=== PATIENT | female | born 1945 | race Caucasian/White ===

== ENCOUNTER 2017-10-15 11:20 | Observation (INO) | payer MEDICARE ==
[~2017-10-15] VITALS: Ht 157.5 cm; Wt 63.5 kg
[2017-10-15] MEDS ORDERED: SODIUM CHLORIDE 0.9% 1000ML 1,000 ML IV STA (11:38)
[2017-10-15] MEDS ORDERED: ASPIRIN 81 MG CHEW TAB PO ONE ×3 (11:45→15:45)
[2017-10-15 11:51] LABS: BASOPHILS # (AUTO) 0.1 (0.0-0.1); BASOPHILS % 1.4 % (0.0-1.0); EOSINOPHILS # (AUTO) 0.1 (0.0-0.4); EOSINOPHILS % 1.4 % (0.0-6.0); HEMATOCRIT 34.3 % (34.2-44.1); HEMOGLOBIN 11.2 g/dL (12.0-16.0); LYMPHOCYTES # (AUTO) 0.9 (1.0-3.2); LYMPHOCYTES % 25.8 % (18.0-39.1); MEAN CORPUSCULAR HEMOGLOBIN 28.9 pg (28-32); MEAN CORPUSCULAR HGB CONC 32.7 g/dL (31-35); MEAN CORPUSCULAR VOLUME 88.4 fL (81-99); MONOCYTES # (AUTO) 0.3 (0.2-0.8); MONOCYTES % 9.4 % (4.4-11.3); NEUTROPHILS # (AUTO) 2.2 (2.1-6.9); NEUTROPHILS % 61.7 % (38.7-80.0); PLATELET COUNT 147 x10e3/uL (140-360); RED BLOOD COUNT 3.88 x10e6/uL (3.6-5.1)
[2017-10-15 12:09] LABS: INR 1.06
[2017-10-15 12:10] LABS: PARTIAL THROMBOPLASTIN TIME 25.2 seconds (23.8-35.5)
[2017-10-15 12:15] LABS: ALANINE AMINOTRANSFERASE 38 IU/L (0-55); ALBUMIN 3.7 g/dL (3.5-5.0); ALBUMIN/GLOBULIN RATIO 1.1 (0.8-2.0); ALKALINE PHOSPHATASE 137 IU/L (40-150); BLOOD UREA NITROGEN 11 mg/dL (7-26); BUN/CREATININE RATIO 12 (6-25); CALCIUM 9.3 mg/dL (8.4-10.2); CARBON DIOXIDE 27 mmol/L (22-29); CHLORIDE 107 mmol/L (98-107); CREATINE KINASE 56 IU/L (29-168); CREATININE, SERUM 0.95 mg/dL (0.57-1.11); EST GLOMERULAR FILTRATION RATE 58 ML/MIN (60-); GLUCOSE 97 mg/dL (74-118); SODIUM 142 mmol/L (136-145)
[2017-10-15] MEDS ORDERED: CLONIDINE HCL 0.1 MG TAB PO ONE (12:45)
[2017-10-15] MEDS ORDERED: HYDRALAZINE HCL 20 MG/ML VIAL IV ONE (14:00)
--- NOTE | 2017-10-15 14:40 | Diagnostic Imaging Report ---
History:Syncope. History of tumor removal Comparison studies:None Technique: Axial images were obtained from the skull base to the vertex. Coronal and sagittal images reconstructed from the axial data. Intravenous contrast: None Findings: Scalp/skull: Left occipital craniectomy changes. Left mastoidectomy changes. Extra-axial spaces: No masses. No fluid collections. Brain sulci: Age-appropriate. Ventricles: Age-appropriate. No hydrocephalus. Parenchyma: Few hypodensities in the supratentorial white matter are small vessel ischemic changes. No masses, hemorrhage, acute or chronic cortical vascular insults. Sellar/suprasellar region: No abnormalities. Craniocervical junction: Patent foramen magnum. No Chiari one malformation. Incidental findings: Atherosclerotic calcifications in the carotid siphons . Impression: No acute abnormalities. Chronic findings: 1. Mild supratentorial white matter small vessel ischemic changes. 2. Left occipital craniectomy and mastoidectomy changes. Signed by: DR Ivan Goodwin M.D. on 10/15/2017 2:37 PM
[2017-10-15] MEDS ORDERED: SODIUM CHLORIDE 0.9% 1000ML 1,000 ML IV SCH (15:36)
[2017-10-15 16:29] VITALS: BP 191/81
[2017-10-15] MEDS ORDERED: CLONIDINE HCL 0.1 MG TAB PO SCH (17:00)
[2017-10-15 17:02] VITALS: BP 191/81
--- NOTE | 2017-10-15 18:07 | Diagnostic Imaging Report ---
PROCEDURE: A single AP view of the chest. COMPARISON: 06/17/11 INDICATIONS: SYNCOPE FINDINGS: Lines/tubes: None. Lungs: The lungs are well inflated and clear. There is no evidence of pneumonia or pulmonary edema. Pleura: There is no pleural effusion or pneumothorax. Heart and mediastinum: The cardiac silhouette is borderline in size. Bones: No acute bony abnormality. IMPRESSION: 1. No acute cardiopulmonary disease. Dictated by: Ganesh Bernardo M.D. on 10/15/2017 at 18:10 Electronically approved by: Ganesh Bernardo M.D. on 10/15/2017 at 18:10
[2017-10-15] MEDS ORDERED: HYDRALAZINE HCL 20 MG/ML VIAL IV PRN (18:15)
[2017-10-15] MEDS ORDERED: NIFEDIPINE CR 30 MG TAB PO ONE (18:30)
[2017-10-15 18:40] VITALS: BP 115/55
[2017-10-15 19:38] VITALS: BP 125/56
[2017-10-15 20:00] VITALS: BP 125/56
[2017-10-16] VITALS: BP 141/71
[2017-10-16 04:00] VITALS: BP 137/65
[2017-10-16 06:10] LABS: EOSINOPHILS # (AUTO) 0.1 (0.0-0.4); HEMATOCRIT 32.6 % (34.2-44.1); HEMOGLOBIN 10.5 g/dL (12.0-16.0); LYMPHOCYTES % 24.2 % (18.0-39.1); MEAN CORPUSCULAR HEMOGLOBIN 29.1 pg (28-32); MEAN CORPUSCULAR HGB CONC 32.2 g/dL (31-35); MEAN CORPUSCULAR VOLUME 90.3 fL (81-99); MONOCYTES # (AUTO) 0.4 (0.2-0.8); MONOCYTES % 10.9 % (4.4-11.3); NEUTROPHILS # (AUTO) 2.5 (2.1-6.9); NEUTROPHILS % 61.2 % (38.7-80.0); PLATELET COUNT 136 x10e3/uL (140-360); RED BLOOD COUNT 3.61 x10e6/uL (3.6-5.1); RED CELL DISTRIBUTION WIDTH 13.8 % (11.7-14.4)
[2017-10-16 07:11] LABS: ANION GAP 11.9 mmol/L (8-16); BLOOD UREA NITROGEN 14 mg/dL (7-26); BUN/CREATININE RATIO 18 (6-25); CALCIUM 9.1 mg/dL (8.4-10.2); CARBON DIOXIDE 26 mmol/L (22-29); CHLORIDE 108 mmol/L (98-107); CREATINE KINASE 43 IU/L (29-168); CREATININE, SERUM 0.79 mg/dL (0.57-1.11); EST GLOMERULAR FILTRATION RATE > 60 ML/MIN (60-); GLUCOSE 95 mg/dL (74-118); MAGNESIUM 1.9 MG/DL (1.3-2.1); POTASSIUM 4.9 mmol/L (3.5-5.1); SODIUM 141 mmol/L (136-145)
[2017-10-16 07:12] LABS: THYROID STIMULATING HORMONE 1.452 uIU/mL (0.350-4.940)
[2017-10-16 07:22] VITALS: BP 131/71
[2017-10-16 11:23] VITALS: BP 137/66
[2017-10-16 14:51] VITALS: BP 129/67
--- NOTE | 2017-10-16 15:09 | Diagnostic Imaging Report ---
Exam: Brain MRI without IV contrast History: Passed out Comparison studies: Head CT 10/15/2017 Technique: Sagittal and axial T2 FS, axial coronal T2 flair, axial T1 FLAIR, T2*GRE and DWI. Intravenous contrast: None Findings: Scalp and bone marrow: Changes of left occipital craniectomy and mastoidectomy. Brain sulci: Appropriate for age. Ventricles: Normal in size. No hydrocephalus. Extra axial spaces: No mass, no fluid collection. Parenchyma: No abnormal signal intensities. No masses, hemorrhage, acute or chronic vascular insults. Suprasellar region: No abnormalities. Craniocervical junction: Patent foramen magnum. No Chiari malformation. Vessels: Normal flow-voids in the arteries and sinuses. IMPRESSION: No acute intracranial abnormalities. Chronic findings: 1. Mild supratentorial chronic microvascular ischemic changes. 2. Surgical changes of left occipital craniectomy and mastoidectomy. Signed by: Dr. Hesham Garcia M.D. on 10/16/2017 3:06 PM
--- NOTE | 2017-10-16 16:22 | Discharge Summary ---
PRIMARY CARE DOCTOR: Dr. Yaya Pham FINAL DIAGNOSIS: Syncope with prodrome. SECONDARY DIAGNOSES 1. Uncontrolled hypertension. 2. Hypothyroidism with normal thyroid stimulating hormone. 3. Lupus, stable, not on any medications. PROCEDURES/STUDIES PERFORMED 1. Portable chest computerized tomography. 2. MRI of the brain. Did not show any acute disease. CONSULTANTS: None. HISTORY: Per [facility] and P. HOSPITAL COURSE: The patient currently is back to her baseline. Her etiology is unclear. Fortunately, it is syncope with prodrome. Telemetry monitoring was unremarkable. The patient did not have any murmur to suggest aortic stenosis. Her carotid pulses are 2+ bilateral with no bruits on either side. In addition, carotid Doppler is not indicated given the fact that with anterior communicating circulation it does take bilateral disease to cause syncope. Currently, her blood pressure is normal without any blood pressure medicines. Her last dose was almost 24 hours ago. Her TSH is normal. The patient was told not to drive for 6 months. If her syncope recurred, most likely she should see a sander and polisher. This particular episode given prodrome, likely this is due to a vasovagal event. The patient was seen and examined today. CONDITION ON DISCHARGE: Stable. DISCHARGE MEDICATIONS: Please see medication reconciliation form. MICHELL TRACEY M.D. Job#: [id number] [place]
== END 2017-10-16 17:45 | disposition home or self-care (01) ==
LOC: ER 11:20 → ERHOLD 15:43 → IMCU 16:02
PROVIDERS: ADMIT Internal Medicine; ATTEND Internal Medicine
DX: R55 Syncope and collapse (principal); I16.9 Hypertensive crisis, unspecified; E03.9 Hypothyroidism, unspecified; M32.9 Systemic lupus erythematosus, unspecified; Z88.6 Allergy status to analgesic agent; Z88.2 Allergy status to sulfonamides; Z88.8 Allergy status to other drugs, medicaments and biological substances; Z91.018 Allergy to other foods
CPT/HCPCS: 36415 ×2; 70450; 70551; 71045; 80048; 80053; 82550 ×2; 82553 ×2; 83735; 84443; 84484 ×2; 85025 ×2; 85610; 85730; 93005; 99284; G0378 ×2; J0360; J7030

== ENCOUNTER 2018-10-10 17:28 | Emergency (ER) | payer MEDICARE ==
[~2018-10-10] VITALS: Ht 157.5 cm; Wt 63.5 kg
--- OUTSIDE RECORDS SUMMARY | 2018-10-10 17:32 | XMS REPORT | Summary of Care ---
Author Author [facility] [place] Organization [facility] [place] Address Unknown Phone Unavailable Encounter HQ Stefanie(FIN) [id number] Date(s): 05/16/17 - 05/16/17 [facility] [place] [address] [place] [phone] Discharge Disposition: Home or Self Care Attending Physician: Miriam Grace MD Vital Signs No data available for this section Problem List Condition Effective Dates Status Health Status Informant Anxiety(Confirmed) Resolved Depression(Confirmed Resolved ) Hypothyroid(Confirme Resolved d) Allergies, Adverse Reactions, Alerts Substance Reaction Severity Status sulfa drugs Active Medications No data available for this section Results No data available for this section Immunizations No data available for this section Procedures Procedure Date Related Diagnosis Body Site Status section Completed 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 Alcohol Past, Previous treatment: None. Alcohol use interferes with work or home: No. Drinks more than intended: No. Others hurt by drinking: No. Ready to change: No. Household alcohol concerns: No. Smoking Status Never smoker; Exposure to Tobacco Smoke None; Cigarette Smoking Last 365 Days No; Reg Smoking Cessation Counseling No entered on: 10/07/13 Assessment and Plan No data available for this section
--- OUTSIDE RECORDS SUMMARY | 2018-10-10 17:32 | XMS REPORT | Continuity of Care Document ---
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 [facility] Moderate major depression 08/24/2018 Diagnosis 08/25/2018 [facility] Primary thrombocytopenia 08/24/2018 Diagnosis 08/25/2018 [facility] Allergic Rhinitis 06/27/2017 Problem 08/25/2018 [facility] Unspecified lump in the right breast, unspecified quadrant 06/06/2017 09/08/2017 [facility] Encounter for screening mammogram for malignant neoplasm of breast 05/22/2017 08/22/2017 [facility] N63.10 - UNSPECIFIED LUMP IN THE RIGHT Active 05/22/2017 [facility] Z12.31 - ENCNTR SCREEN MAMMOGRAM FOR MA Active 05/01/2017 [facility] Acoustic Neuroma 04/30/2017 Problem 08/25/2018 [facility] Primary Thrombocytopenia 04/30/2017 Problem 08/25/2018 [facility] Osteopenia 05/25/2015 Problem 08/25/2018 [facility] 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 08/25/2018 [facility] SYNCOPE Active 10/06/2013 [facility] Herpes Simplex 12/14/2012 Problem 08/25/2018 [facility] Pure Hypercholesterolemia 12/14/2012 Problem 08/25/2018 [facility] Anemia of Chronic Disease 12/14/2012 Problem 08/25/2018 [facility] Depressive Disorder 12/14/2012 Problem 08/25/2018 [facility] Systemic Lupus Erythematosus 12/14/2012 Problem 08/25/2018 [facility] SjGren's Syndrome 12/14/2012 Problem 08/25/2018 [facility] Generalized Anxiety Disorder 07/31/2012 Problem 08/25/2018 [facility] Coronary Atherosclerosis 07/09/2012 Problem 08/25/2018 [facility] Osteoarthritis 07/09/2012 Problem 08/25/2018 [facility] Depression Resolved Problem 07/15/2018 [facility] Hypothyroid Resolved Problem 07/15/2018 [facility] Inconclusive mammogram 09/08/2017 GAVIN Guzman Hypertensive urgency Active Problem 10/16/2017 [facility] Syncope Active Problem 10/16/2017 [facility] Hypothyroidism Problem 08/25/2018 [facility] Anxiety Problem 08/25[facility] Depression - Motion Problem 08/25/2018 [facility] SYNCOPE AND COLLAPSE Active [facility] Medications Medication Details Route Status Patient Instructions Ordering Provider Order Date Source Naproxen 375 mg, 1 tab, Route: PO, Drug form: TAB, Q8H, Dosing Weight 63.636, kg, PRN as needed for pain, Start date: 10/07/13 2:36:00, Duration: 30 day, Stop date: 11/06/13 2:35:00Notes: (Same as: Naprosyn) Take with food. Inactive 10/07/2013 [facility] Saline Flush 0.9% 5 ml, Route: IVP, Drug Form: INJ, Dosing Weight 63.636, kg, PRN, PRN Line Flush, Start date: 10/07/13 2:31:00, Duration: 30 day, Stop date: 11/06/13 2:30:00Notes: (Same as: BD Posiflush) Inactive 10/07/2013 [facility] Sodium Chloride 0.154 MEQ/ML Injectable Solution 1,000 mL, Rate: 125 ml/hr, Infuse over: 8 hr, Route: IV, Dosing Weight 63.636 kg, Total Volume: 1,000, Start date: 10/07/13 2:31:00, Duration: 30 day, Stop date: 11/06/13 2:30:00 Inactive 10/07/2013 [facility] Aspirin / Calcium Carbonate 324 mg, 4 tab, Route: CHEW, Drug form: CHEWTAB, ONCE, Dosing Weight 63.636, kg, Priority: STAT, Start date: 10/07/13 1:53:00, Stop date: 10/07/13 1:53:00Notes: Take with food. Inactive 10/07/2013 [facility] Saline Flush 0.9% 5 mL, Route: IVP, Drug Form: INJ, Dosing Weight 63.636, kg, Q8H, PRN Line Flush, Start date: 10/06/13 22:30:00, Duration: 30 day, Stop date: 11/05/13 22:29:00, Administer at least once every 8 hoursSpecial Instructions: Administer at least once every 8 hoursNotes: (Same as: BD Posiflush) No Longer Active 10/07/2013 [facility] Clorazepate Dipotassium 3.75 MG Oral Tablet clorazepate dipotassium 3.75 mg tablet TAKE 1 TABLET BY MOUTH EVERY DAY Active [facility] irbesartan 300 MG Oral Tablet irbesartan 300 mg tablet Take 1 tablet every day by oral route. Active [facility] Levothyroxine Sodium 0.1 MG Oral Tablet levothyroxine 100 mcg tablet Take 1 tablet every day by oral route. Active [facility] Paroxetine Hydrochloride 30 MG Oral Tablet paroxetine 30 mg tablet 1 tab po daily Active [facility] Dexamethasone 1 MG/ML / Tobramycin 3 MG/ML Ophthalmic Suspension tobramycin 0.3 %-dexamethasone 0.1 % eye drops,suspension Instill 1 drop every 6 hours by ophthalmic route for 7 days. Active [facility] valacyclovir 1000 MG Oral Tablet valacyclovir 1 gram tablet Active [facility] Allergies, Adverse Reactions, Alerts Substance Category Reaction Severity Reaction type Status Date Reported Comments Source Carisoprodol Allergy to substance 02/25/2012 [facility] Egg Other Mild to Moderate Allergy to substance 02/25/2012 [facility] Ibuprofen Allergy to substance 05/25/2015 [facility] Sulfa (Sulfonamide Antibiotics) RED RASH Mild Allergy to Substance Active 10/15/2017 [facility] Eggs Unknown Allergy to Substance Active 10/15/2017 [facility] Banana Nausea Mild Allergy to substance 10/20/2017 [facility] Rj Inhibitors Cough Moderate Allergy to substance 02/20/2018 [facility] sulfa drugs Assertion Drug allergy Active [facility] Immunizations Immunization Date Given Site Status Last Updated Comments Source zoster subunit 03/21/2018 completed [facility] Tdap 11/12/2017 completed [facility] zoster subunit 10/20/2017 completed [facility] pneumococcal conjugate PCV 13 05/25/2015 completed [facility] pneumococcal polysaccharide PPV23 11/03/2011 completed [facility] zoster 05/05/2007 completed [facility] Tdap 05/05/2006 completed [facility] zoster subunit active [facility] Results Order Name Results Value Reference Range Date Interpretation Comments Source Breast Mammo Scrn KAMRAN incl CAD MA Breast Mammo Scrn KAMRAN incl CAD MA BILATERAL DIGITAL SCREENING MAMMOGRAM WITH CAD: 07/13/2018 CLINICAL: Routine/Screening. Current study was evaluated with a Computer Aided Detection (CAD) system. COMPARISON:Comparison is made to exams dated: 06/02/2017 mammogram, 05/16/2017 mammogram, 07/07/2015 mammogram, and 05/29/2012 mammogram - [facility]. TECHNIQUE: Mammographic views were obtained using digital acquisition. Current study was also evaluated with a Computer Aided Detection (CAD) system. FINDINGS: The tissue of both breasts is heterogeneously dense, which could obscure detection of small masses. No significant masses, calcifications, or other findings are seen in either breast. There has been no significant interval change. IMPRESSION: NEGATIVE RECOMMENDATION:There is no mammographic evidence of malignancy. A 1 year screening mammogram is recommended.(07/14/2019) This exam was interpreted at [id number] for TIM Blake. Professional services are provided by the [facility]. Liya floyd/ruthie:07/15/2018 09:04:59 Absorption And Adsorption Engineer(s): RT Rita(R)(M), [facility] letter sent: BI-RADS 1/2 Dense Mammogram BI-RADS: 1 Negative 07/13/2018 - - Read by: Liya Che MD Dictated Date/time: 07/15/18 09:04 Electronically Signed by: Liya Che MD 07/15/18 09:04 [facility] Automated blood basophil count (count/volume) Automated blood basophil count (count/volume) 0.0 0.0 - 0.1 10/16/2017 [facility] Automated blood basophil count as percentage of total leukocytes Automated blood basophil count as percentage of total leukocytes 1.0 0.0 - 1.0 10/16/2017 [facility] Automated blood eosinophil count Automated blood eosinophil count 0.1 0.0 - 0.4 10/16/2017 [facility] Automated blood eosinophil count as percentage of total leukocytes Automated blood eosinophil count as percentage of total leukocytes 2.0 0.0 - 6.0 10/16/2017 [facility] Automated blood hematocrit (volume fraction) Automated blood hematocrit (volume fraction) 32.6 34.2 - 44.1 10/16/2017 [facility] Automated blood lymphocyte count as percentage ot total leukocytes Automated blood lymphocyte count as percentage ot total leukocytes 24.2 18.0 - 39.1 10/16/2017 [facility] Automated blood monocyte count as percentage of total leukocytes Automated blood monocyte count as percentage of total leukocytes 10.9 4.4 - 11.3 10/16/2017 [facility] Automated blood neutrophil count Automated blood neutrophil count 2.5 2.1 - 6.9 10/16/2017 [facility] Automated blood platelet count (count/volume) Automated blood platelet count (count/volume) 136 140 - 360 10/16/2017 [facility] Automated blood segmented neutrophil count as percentage of total leukocytes Automated blood segmented neutrophil count as percentage of total leukocytes 61.2 38.7 - 80.0 10/16/2017 [facility] Automated erythrocyte mean corpuscular hemoglobin (mass per erythrocyte) Automated erythrocyte mean corpuscular hemoglobin (mass per erythrocyte) 29.1 28 - 32 10/16/2017 [facility] Automated erythrocyte mean corpuscular hemoglobin concentration measurement (mass/volume) Automated erythrocyte mean corpuscular hemoglobin concentration measurement (mass/volume) 32.2 31 - 35 10/16/2017 [facility] Automated erythrocyte mean corpuscular volume Automated erythrocyte mean corpuscular volume 90.3 81 - 99 10/16/2017 [facility] Blood erythrocytes automated count (number/volume) Blood erythrocytes automated count (number/volume) 3.61 3.6 - 5.1 10/16/2017 [facility] Blood hemoglobin measurement (moles/volume) Blood hemoglobin measurement (moles/volume) 10.5 12.0 - 16.0 10/16/2017 [facility] Blood leukocytes automated count (number/volume) Blood leukocytes automated count (number/volume) 4.05 4.8 - 10.8 10/16/2017 [facility] Blood lymphocytes count (number/volume) Blood lymphocytes count (number/volume) 1.0 1.0 - 3.2 10/16/2017 [facility] Blood monocytes automated count (number/volume) Blood monocytes automated count (number/volume) 0.4 0.2 - 0.8 10/16/2017 [facility] Estimated glomerular filtration rate (GFR) determination Estimated glomerular filtration rate (GFR) determination null 60 10/16/2017 [facility] Glucose measurement Glucose measurement 95 74 - 118 10/16/2017 [facility] Serum or plasma anion gap Serum or plasma anion gap 11.9 8 - 16 10/16/2017 [facility] Serum or plasma calcium measurement (mass/volume) Serum or plasma calcium measurement (mass/volume) 9.1 8.4 - 10.2 10/16/2017 [facility] Serum or plasma carbon dioxide, total measurement (moles/volume) Serum or plasma carbon dioxide, total measurement (moles/volume) 26 22 - 29 10/16/2017 [facility] Serum or plasma chloride measurement (moles/volume) Serum or plasma chloride measurement (moles/volume) 108 98 - 107 10/16/2017 [facility] Serum or plasma creatine kinase MB measurement (mass/volume) Serum or plasma creatine kinase MB measurement (mass/volume) 1.40 0 - 5.0 10/16/2017 [facility] Serum or plasma creatine kinase measurement (enzymatic activity/volume) Serum or plasma creatine kinase measurement (enzymatic activity/volume) 43 29 - 168 10/16/2017 [facility] Serum or plasma creatinine measurement (mass/volume) Serum or plasma creatinine measurement (mass/volume) 0.79 0.57 - 1.11 10/16/2017 [facility] Serum or plasma magnesium measurement (mass/volume) Serum or plasma magnesium measurement (mass/volume) 1.9 1.3 - 2.1 10/16/2017 [facility] Serum or plasma potassium measurement (moles/volume) Serum or plasma potassium measurement (moles/volume) 4.9 3.5 - 5.1 10/16/2017 [facility] Serum or plasma sodium measurement (moles/volume) Serum or plasma sodium measurement (moles/volume) 141 136 - 145 10/16/2017 [facility] Serum or plasma thyrotropin measurement by detection limit <=0.005 miu/l (units/volume) Serum or plasma thyrotropin measurement by detection limit <=0.005 miu/l (units/volume) 1.452 0.350 - 4.940 10/16/2017 [facility] Serum or plasma urea nitrogen measurement (mass/volume) Serum or plasma urea nitrogen measurement (mass/volume) 14 7 - 26 10/16/2017 [facility] Serum or plasma urea nitrogen/creatinine mass ratio Serum or plasma urea nitrogen/creatinine mass ratio 18 6 - 25 10/16/2017 [facility] Troponin I measurement by highly sensitive enzyme immunoassay Troponin I measurement by highly sensitive enzyme immunoassay null 0 - 0.300 10/16/2017 [facility] Red Cell Distribution Width 13.8 11.7 - 14.4 10/16/2017 [facility] IM GRANULOCYTES % 0.7 0.0 - 1.0 10/16/2017 [facility] Absolute Immature Granulocyte (auto 0.03 0 - 0.1 10/16/2017 [facility] Activated partial thromboplastin time (aPTT) in platelet poor plasma bycoagulation assay Activated partial thromboplastin time (aPTT) in platelet poor plasma bycoagulation assay 25.2 23.8 - 35.5 10/15/2017 [facility] INR in Platelet poor plasma by Coagulation assay INR in Platelet poor plasma by Coagulation assay 1.06 10/15/2017 [facility] Plasma globulin measurement (mass/volume) Plasma globulin measurement (mass/volume) 3.5 2.3 - 3.5 10/15/2017 [facility] Prothrombin time (PT) in platelet poor plasma by coagulation assay Prothrombin time (PT) in platelet poor plasma by coagulation assay 13.0 11.9 - 14.5 10/15/2017 [facility] Serum or plasma alanine aminotransferase measurement (enzymatic activity/volume) Serum or plasma alanine aminotransferase measurement (enzymatic activity/volume) 38 0 - 55 10/15/2017 [facility] Serum or plasma albumin measurement (mass/volume) Serum or plasma albumin measurement (mass/volume) 3.7 3.5 - 5.0 10/15/2017 [facility] Serum or plasma albumin/globulin mass ratio Serum or plasma albumin/globulin mass ratio 1.1 0.8 - 2.0 10/15/2017 [facility] Serum or plasma alkaline phosphatase measurement (enzymatic activity/volume) Serum or plasma alkaline phosphatase measurement (enzymatic activity/volume) 137 40 - 150 10/15/2017 [facility] Serum or plasma protein measurement (mass/volume) Serum or plasma protein measurement (mass/volume) 7.2 6.5 - 8.1 10/15/2017 [facility] Serum or plasma total bilirubin measurement (mass/volume) Serum or plasma total bilirubin measurement (mass/volume) 0.3 0.2 - 1.2 10/15/2017 [facility] Aspartate Amino Transf (AST/SGOT) 28 5 - 34 10/15/2017 [facility] Breast Mammo Diag UNI incl CAD MA Breast Mammo Diag UNI incl CAD MA UNILATERAL RIGHT DIGITAL DIAGNOSTIC MAMMOGRAM WITH CAD: 06/02/2017 CLINICAL: N63.10 Unspecified Lump In The Right Breast, Unspecified Quadrant/N63.10 Unspecified Lump In The Right Breast, Unspecified Quadrant. Current study was evaluated with a Computer Aided Detection (CAD) system. COMPARISON:Comparison is made to exams dated: 05/16/2017 mammogram, 07/07/2015 mammogram, 05/29/2012 mammogram - [facility], 03/25/2011 mammogram, 02/28/2010 mammogram, and 04/22/2008 mammogram - [facility]. TECHNIQUE: Mammographic views were obtained using digital acquisition. Current study was also evaluated with a Computer Aided Detection (CAD) system. FINDINGS: The tissue of right breast is heterogeneously dense, which could obscure detection of small masses. Additional imaging was obtained. Focal area in question in the right breast in prior mammography is not reproduced and presumably represents superimposed breast tissue. No significant masses, calcifications, or other findings are seen in the breast. IMPRESSION: BENIGN RECOMMENDATION:There is no mammographic evidence of malignancy. A 1 year screening mammogram is recommended.(06/03/2018) This exam was interpreted at [id number] for TIM Guzman. Professional services are provided by the [facility]. Oren Moe M.D. cm/penrad:06/02/2017 15:15:50 Absorption And Adsorption Engineer(s): RT Brittney(R)(M), [facility] letter sent: BI-RADS 1/2 Mammogram BI-RADS: 2 Benign 06/02/2017 - - Read by: Elvis Marley MD Dictated Date/time: 06/02/17 15:15 Electronically Signed by: Elvis Marley MD 06/02/17 15:15 FINAL REPORT TIM Guzman Breast Mammo Scrn KAMRAN incl CAD MA Breast Mammo Scrn KAMRAN incl CAD MA BILATERAL DIGITAL SCREENING MAMMOGRAM WITH CAD: 05/16/2017 CLINICAL: Routine/Screening. Current study was evaluated with a Computer Aided Detection (CAD) system. COMPARISON:Comparison is made to exams dated: 07/07/2015 mammogram, 05/29/2012 mammogram - [facility], 03/25/2011 mammogram, 02/28/2010 mammogram, 04/22/2008 mammogram, and 01/14/2007 mammogram - [facility]. TECHNIQUE: Mammographic views were obtained using digital acquisition. Current study was also evaluated with a Computer Aided Detection (CAD) system. FINDINGS: The tissue of both breasts is heterogeneously dense, which could obscure detection of small masses. There is an asymmetry in the right breast anterior depth lateral region seen on the craniocaudal view only 8.5 cm from the nipple. No other significant masses, calcifications, or other findings are seen in either breast. IMPRESSION: INCOMPLETE: NEEDS ADDITIONAL IMAGING EVALUATION RECOMMENDATION:The asymmetry in the right breast is indeterminate. Diagnostic mammography with possible ultrasound are recommended. This exam was interpreted at [id number] for TIM Thomas. Professional services are provided by the [facility]. Oren Moe M.D. cm/penrad:05/21/2017 15:23:32 Absorption And Adsorption Engineer(s): Orquidea Rasmussen, RT(R)(M), [facility] letter sent: BI-RADS 0 Mammogram BI-RADS: 0 Indeterminate 05/16/2017 - - Read by: Elvis Marley MD Dictated Date/time: 05/21/17 15:23 Electronically Signed by: Elvis Marley MD 05/21/17 15:23 FINAL REPORT TIM ALONSO Thomas Digital Mammo Screening Kamran MA Digital Mammo Screening Kamran MA - DIGITAL MAMMO SCREENING KAMRAN MA BILATERAL DIGITAL SCREENING MAMMOGRAM WITH CAD: 07/07/2015 CLINICAL: Z12.31 Encounter For Screening Mammogram For Malignant Neoplasm Of Breast. Current study was evaluated with a Computer Aided Detection (CAD) system. Comparison is made to exams dated: 05/29/2012 mammogram - [facility], 03/25/2011 mammogram, 02/28/2010 mammogram, 04/22/2008 mammogram and 01/14/2007 mammogram - [facility]. The tissue of both breasts is heterogeneously dense, which could obscure detection of small masses. There are benign calcifications in both breasts. There also are post operative findings in the right breast. No significant masses, calcifications, or other findings are seen in either breast. There has been no significant interval change. IMPRESSION: BENIGN There is no mammographic evidence of malignancy. A 1 year screening mammogram is recommended. Oern Moe M.D. cm/penrad:07/10/2015 09:44:49 Absorption And Adsorption Engineer: Orquidea Rasmussen RT(R)(M), [facility] This exam was dictated and interpreted by [id number] for TIM Guzman. letter sent: Normal exam Mammogram BI-RADS: 2 Benign 07/07/2015 - - Read by: Elvis Marley MD Dictated Date/time: 07/10/15 09:44 Electronically Signed by: Elvis Marley MD 07/10/15 09:44 FINAL REPORT GAVIN Guzman CARDIAC ENZYMES Total CK 87 unit/L 12 - 191 10/07/2013 [facility] CARDIAC ENZYMES Troponin-I null 0.00 - 0.40 10/07/2013 [facility] CARDIAC ENZYMES CK MB Index 1.8 0.0 - 2.5 10/07/2013 [facility] CARDIAC ENZYMES CK MB 1.6 ng/mL 0.5 - 3.6 10/07/2013 [facility] CARDIAC ENZYMES Troponin-I null 0.00 - 0.40 10/07/2013 [facility] CARDIAC ENZYMES Total CK 67 unit/L 12 - 191 10/07/2013 [facility] CHEM PANEL Magnesium Lvl 1.8 mg/dL 1.8 - 2.4 10/07/2013 [facility] ELECTROLYTES AGAP 9.3 meq/L 10.0 - 20.0 10/07/2013 [facility] ELECTROLYTES eGFR 77 mL/min/1.73m2 10/07/2013 1Result Comment: The eGFR is calculated using the CKD-EPI formula. In most young, healthy individuals the eGFR will be >90 mL/min/1.73m2. The eGFR declines with age. An eGFR of 60-89 may be normal in some populations, particularly the elderly, for whom the CKD-EPI formula has not been extensively validated. Use of the eGFR is not recommended in the following populations: Individuals with unstable creatinine concentrations, including patients and those with serious co-morbid conditions. Patients with extremes in muscle mass or diet. The data above are obtained from the National Kidney Disease Education Program (NKDEP) which additionally recommends that when the eGFR is used in patients with extremes of body mass index for purposes of drug dosing, the eGFR should be multiplied by the estimated BMI. [facility] ELECTROLYTES Calcium Lvl 9.5 mg/dL 8.5 - 10.5 10/07/2013 [facility] ELECTROLYTES CO2 28 meq/L 24 - 32 10/07/2013 [facility] ELECTROLYTES Chloride Lvl 106 meq/L 95 - 109 10/07/2013 [facility] ELECTROLYTES Sodium Lvl 139 meq/L 135 - 145 10/07/2013 [facility] ELECTROLYTES Potassium Lvl 4.3 meq/L 3.5 - 5.1 10/07/2013 [facility] ELECTROLYTES Creatinine Lvl 0.8 mg/dL 0.5 - 1.4 10/07/2013 [facility] ELECTROLYTES Glucose Lvl 88 mg/dL 70 - 99 10/07/2013 3Interpretive Data: Adult reference range values reflect the clinical guidelines of the [place] [employer]. [facility] ELECTROLYTES BUN 10 mg/dL 7 - 22 10/07/2013 [facility] HEMATOLOGY Basophils 0.7 % 0.0 - 1.0 10/07/2013 [facility] HEMATOLOGY Lymphocytes # 1.0 K/CMM 1.0 - 5.5 10/07/2013 [facility] HEMATOLOGY Segs-Bands # 3.6 K/CMM 1.5 - 8.1 10/07/2013 [facility] HEMATOLOGY Eosinophils # 0.1 K/CMM 0.0 - 0.5 10/07/2013 [facility] HEMATOLOGY Monocytes # 0.5 K/CMM 0.0 - 0.8 10/07/2013 [facility] HEMATOLOGY Eosinophils 1.2 % 0.0 - 4.0 10/07/2013 [facility] HEMATOLOGY Lymphocytes 18.9 % 20.0 - 40.0 10/07/2013 [facility] HEMATOLOGY Segs 69.9 % 45.0 - 75.0 10/07/2013 [facility] HEMATOLOGY Monocytes 9.3 % 2.0 - 12.0 10/07/2013 [facility] HEMATOLOGY Hct 35.2 % 36.0 - 48.0 10/07/2013 [facility] HEMATOLOGY Hgb 11.9 g/dL 12.0 - 16.0 10/07/2013 [facility] HEMATOLOGY RBC X 10x6 3.84 M/CMM 4.20 - 5.40 10/07/2013 [facility] HEMATOLOGY WBC X 10x3 5.1 K/CMM 3.7 - 10.4 10/07/2013 [facility] HEMATOLOGY MCV 91.5 fL 81.0 - 99.0 10/07/2013 [facility] HEMATOLOGY RDW 13.5 % 11.5 - 14.5 10/07/2013 [facility] HEMATOLOGY MCHC 33.7 g/dL 32.0 - 36.0 10/07/2013 [facility] MCH 30.9 pg 27.0 - 31.0 10/07/2013 [facility] HEMATOLOGY MPV 8.7 fL 7.4 - 10.4 10/07/2013 [facility] HEMATOLOGY Platelet 123 K/CMM 133 - 450 10/07/2013 [facility] CARDIAC ENZYMES Troponin-I null 0.00 - 0.40 10/07/2013 [facility] CARDIAC ENZYMES CK MB 2.0 ng/mL 0.5 - 3.6 10/07/2013 [facility] CARDIAC ENZYMES Total CK 90 unit/L 12 - 191 10/07/2013 [facility] CARDIAC ENZYMES CK MB Index 2.2 0.0 - 2.5 10/07/2013 [facility] CHEM PANEL eGFR 77 mL/min/1.73m2 10/07/2013 2Result Comment: The eGFR is calculated using the CKD-EPI formula. In most young, healthy individuals the eGFR will be >90 mL/min/1.73m2. The eGFR declines with age. An eGFR of 60-89 may be normal in some populations, particularly the elderly, for whom the CKD-EPI formula has not been extensively validated. Use of the eGFR is not recommended in the following populations: Individuals with unstable creatinine concentrations, including patients and those with serious co-morbid conditions. Patients with extremes in muscle mass or diet. The data above are obtained from the National Kidney Disease Education Program (NKDEP) which additionally recommends that when the eGFR is used in patients with extremes of body mass index for purposes of drug dosing, the eGFR should be multiplied by the estimated BMI. [facility] CHEM PANEL Alk Phos 85 unit/L 39 - 136 10/07/2013 [facility] CHEM PANEL ALT 31 unit/L 0 - 65 10/07/2013 [facility] CHEM PANEL AST 25 unit/L 0 - 37 10/07/2013 [facility] CHEM PANEL Total Protein 7.8 g/dL 6.4 - 8.4 10/07/2013 [facility] CHEM PANEL Globulin 3.4 g/dL 2.0 - 4.0 10/07/2013 [facility] CHEM PANEL Albumin Lvl 4.4 g/dL 3.5 - 5.0 10/07/2013 [facility] CHEM PANEL AGAP 9.6 meq/L 10.0 - 20.0 10/07/2013 [facility] CHEM PANEL Bili Total 0.3 mg/dL 0.2 - 1.3 10/07/2013 [facility] CHEM PANEL A/G Ratio 1.3 0.7 - 1.6 10/07/2013 [facility] CHEM PANEL Glucose Lvl 110 mg/dL 70 - 99 10/07/2013 4Interpretive Data: Adult reference range values reflect the clinical guidelines of the [place] [employer]. [facility] CHEM PANEL B/C Ratio 14 6 - 25 10/07/2013 [facility] CHEM PANEL Potassium Lvl 3.6 meq/L 3.5 - 5.1 10/07/2013 [facility] CHEM PANEL Calcium Lvl 9.5 mg/dL 8.5 - 10.5 10/07/2013 [facility] CHEM PANEL Chloride Lvl 102 meq/L 95 - 109 10/07/2013 [facility] CHEM PANEL CO2 28 meq/L 24 - 32 10/07/2013 [facility] CHEM PANEL BUN 11 mg/dL 7 - 22 10/07/2013 [facility] CHEM PANEL Creatinine Lvl 0.8 mg/dL 0.5 - 1.4 10/07/2013 [facility] CHEM PANEL Sodium Lvl 136 meq/L 135 - 145 10/07/2013 [facility] HEMATOLOGY Hct 36.0 % 36.0 - 48.0 10/07/2013 [facility] HEMATOLOGY Hgb 12.0 g/dL 12.0 - 16.0 10/07/2013 [facility] HEMATOLOGY MCV 89.5 fL 81.0 - 99.0 10/07/2013 [facility] HEMATOLOGY WBC X 10x3 8.4 K/CMM 3.7 - 10.4 10/07/2013 [facility] HEMATOLOGY RBC X 10x6 4.03 M/CMM 4.20 - 5.40 10/07/2013 [facility] MCH 29.9 pg 27.0 - 31.0 10/07/2013 [facility] HEMATOLOGY RDW 13.5 % 11.5 - 14.5 10/07/2013 [facility] HEMATOLOGY MCHC 33.4 g/dL 32.0 - 36.0 10/07/2013 [facility] HEMATOLOGY Platelet 125 K/CMM 133 - 450 10/07/2013 [facility] HEMATOLOGY MPV 8.2 fL 7.4 - 10.4 10/07/2013 [facility] HEMATOLOGY Segs-Bands # 7.0 K/CMM 1.5 - 8.1 10/07/2013 [facility] HEMATOLOGY Basophils 0.4 % 0.0 - 1.0 10/07/2013 [facility] HEMATOLOGY Monocytes # 0.5 K/CMM 0.0 - 0.8 10/07/2013 [facility] HEMATOLOGY Lymphocytes # 0.8 K/CMM 1.0 - 5.5 10/07/2013 [facility] HEMATOLOGY Segs 82.9 % 45.0 - 75.0 10/07/2013 [facility] HEMATOLOGY Lymphocytes 9.8 % 20.0 - 40.0 10/07/2013 [facility] HEMATOLOGY Monocytes 6.4 % 2.0 - 12.0 10/07/2013 [facility] HEMATOLOGY Eosinophils 0.5 % 0.0 - 4.0 10/07/2013 [facility] URINE AND STOOL UA Spec Grav <=1.005
*NA*
(10/06/13 10:36 PM) <=1.030 10/07/2013 [facility] URINE AND STOOL UA pH 7.0 5.0 - 8.0 10/07/2013 [facility] URINE AND STOOL UA Glucose Negative (10/06/13 10:36 PM) Negative 10/07/2013 [facility] URINE AND STOOL UA Protein Negative (10/06/13 10:36 PM) Negative 10/07/2013 [facility] URINE AND STOOL UA Ketones Negative *NA* (10/06/13 10:36 PM) Negative 10/07/2013 [facility] URINE AND STOOL UA Bili Negative *NA* (10/06/13 10:36 PM) Negative 10/07/2013 [facility] URINE AND STOOL UA Turbidity Clear (10/06/13 10:36 PM) Clear 10/07/2013 [facility] URINE AND STOOL UA Color Yellow *NA* (10/06/13 10:36 PM) Yellow 10/07/2013 [facility] URINE AND STOOL UA Urobilinogen 0.2 EU/dL 0.1 - 1.0 10/07/2013 [facility] URINE AND STOOL UA Nitrite Negative (10/06/13 10:36 PM) Negative 10/07/2013 [facility] URINE AND STOOL UA Leuk Est Negative (10/06/13 10:36 PM) Negative 10/07/2013 [facility] URINE AND STOOL UA Blood Negative (10/06/13 10:36 PM) Negative 10/07/2013 [facility] URINE AND STOOL UA Bacteria Few /HPF None Seen /HPF 10/07/2013 [facility] URINE AND STOOL Micro? Performed (10/06/13 10:36 PM) 10/07/2013 [facility] URINE AND STOOL UA Sq Epi Rare /LPF Few /LPF 10/07/2013 [facility] URINE AND STOOL UA RBC 0-2 /HPF 0 - 2 10/07/2013 [facility] URINE AND STOOL UA WBC 0-2 /HPF None Seen /HPF 10/07/2013 [facility] Brain wo contrast CT Brain wo contrast CT Name: JOCELYN CENTENO : 1945 Ordering Physician: Meño Mayers Brain wo contrast CT : Oct 06, 2013 11:08:00 PM. CLINICAL INDICATION: Syncope REASON FOR EXAM: See Clinic Indication Comparison Examination: MRI the head November 10, 2009. TECHNIQUE: CT images were obtained from the foramen magnum to the vertex without the use of intravenous contrast on a multidetector CT. Total DLP=10 54.76 mGy/cm FINDINGS: Again seen is postoperative changes of a left suboccipital craniectomy and modified mastoidectomy with partial removal of the left internal auditory canal similar to the MRI dated November 10, 2009. Atrophy of the adjacent cerebellar hemisphere is seen with a very small extra-axial fluid collection. There are normal lawson-white interfaces, sulci and gyri. There are no focal mass lesions on this non contrast head CT. There is no mass effect, midline shift or edema. There are no intra-axial or extra-axial fluid collections, intraventricular or intraparenchymal hemorrhage. The ventricles and cisterns are normal. The visualized orbits are unremarkable. Mild sinus disease is present in several of the ethmoidal air cells. The mastoid air cells are clear, bilaterally. There are no other calvarial changes seen. If there is further concern for intracranial pathology, MRI of the brain may be performed for complete assessment. Impression: 1. Postoperative changes in the left occipital bone and left temporal bone similar to the MRI dated November 10, 2009. 2. No evidence of a new mass, acute stroke or intracranial hemorrhage is seen. A preliminary report of this exam was faxed and electronically sent to the ordering/coverage physician by the [facility] Radiologist on Oct 06, 2013 11:08:00 PM . SL:[id number] 10/06/2013 - - Read by: Hesham Al MD Dictated Date/time: 10/07/13 07:45 Electronically Signed by: Hesham Al MD 10/07/13 08:29 FINAL REPORT [facility] Vital Signs Vital Sign Value Date Comments Source Diastolic (mm Hg) 88 08/24/2018 [facility] Height 62 08/24/2018 [facility] Systolic (mm Hg) 136 08/24/2018 [facility] Weight 125 08/24/2018 [facility] Systolic (mm Hg) 156 10/07/2013 [facility] Diastolic (mm Hg) 89 10/07/2013 [facility] Heart Rate 66 10/07/2013 [facility] Temperature Oral (F) 98.2 F 10/07/2013 [facility] Respitory Rate 18 10/07/2013 [facility] Heart Rate 60 10/07/2013 [facility] Systolic (mm Hg) 160 10/07/2013 [facility] Diastolic (mm Hg) 82 10/07/2013 [facility] Respitory Rate 18 10/07/2013 [facility] Heart Rate 61 10/07/2013 [facility] Diastolic (mm Hg) 80 10/07/2013 [facility] Systolic (mm Hg) 188 10/07/2013 [facility] Temperature Oral (F) 97.6 F 10/07/2013 [facility] Respitory Rate 18 10/07/2013 [facility] Temperature Oral (F) 97.8 F 10/07/2013 [facility] Height 162.56 cm 10/07/2013 [facility] BMI Calculated 23.74 10/07/2013 [facility] Weight 62.727 10/07/2013 [facility] Weight 63.636 10/07/2013 [facility] Height 154.94 cm 10/07/2013 [facility] BMI Calculated 26.51 10/07/2013 [facility] Encounters Location Location Details Encounter Type Encounter Number Reason For Visit Attending Provider ADM Date DC Date Status Source [facility] OBS Observation Patient [id number] Salvatore Cantu 10/07/2013 10/08/2013 [facility] [id number] Yaya Pham 07/07/2015 07/08/2015 [facility] [id number] Miriam Toll 05/16/2017 05/17/2017 [facility] [id number] Miriam Toll 06/02/2017 06/03/2017 [facility] Discharged Inpatient (obs) [id number] MICHELL TRACEY MD 10/15/2017 10/16/2017 [facility] [id number] Rob Martin 07/13/2018 07/14/2018 [facility] Portia Moore MD: [id number], [address], [place] [address], Ph. [id number] Portia Moore 08/24/2018 [facility] Procedures Procedure Code Date Perfomer Comments Source Magnetic resonance imaging of brain without contrast [id number] 10/16/2017 [facility] Computed tomography of brain without radiopaque contrast [id number] 10/15/2017 [facility] Colonoscopy 05/05/2012 [facility] Orthopedic Surgery 05/05/2009 [facility] Colonoscopy 11/25/2008 [facility] Hysterectomy (Partial) 05/05/1992 [facility] Neurosurgery (Brain) 05/05/1992 [facility] Orthopedic Surgery 05/05/1988 [facility] Neurosurgery (Brain) 05/05/1987 [facility] Neurosurgery (Brain) 05/05/1986 [facility] Caesarean Section 05/05/1982 [facility] Caesarean Section 05/05/1973 [facility] section [id number] [facility] Excision of tumor of brain meninges [id number] [facility] section [id number] [facility] Excision of tumor of brain meninges [id number] [facility]
--- OUTSIDE RECORDS SUMMARY | 2018-10-10 17:32 | XMS REPORT | Summary of Care ---
Author Author [facility] [place] Organization [facility] [place] Address Unknown Phone Unavailable Encounter HQ Stefanie(FIN) [id number] Date(s): 07/13/18 - 07/13/18 [facility] [place] [address] [place] [phone] Discharge Disposition: Home or Self Care Attending Physician: Rob Martin MD Referring Physician: Rob Martin MD Vital Signs No data available for [...]
--- OUTSIDE RECORDS SUMMARY | 2018-10-10 17:32 | XMS REPORT | Summary of Care ---
Author Organization Unknown Address Unknown Phone Unavailable Encounter HQ Stefanie(MATT) [id number] Date(s): 10/06/13 - 10/07/13 [facility] [address] Discharge Disposition: Home Physician Attending: Salvatore Cantu MD Reason for Visit [facility] Vital Signs 1 2 3 Most recent to oldest [Reference Range]: 162.56 cm (10/07/13 4:48 AM) 154.94 cm (10/06/13 9:48 PM) Height 98.2 DegF (10/07/13 4:00 PM) 97.6 DegF (10/07/13 11:00 AM) 97.8 DegF (10/07/13 8:12 AM) Temperature Oral [96.4-99.1 DegF] 156 mmHg *HI* (10/07/13 4:00 PM) 160 mmHg *HI* (10/07/13 11:30 AM) 188 mmHg *HI* (10/07/13 11:00 AM) Systolic Blood Pressure [90-140 mmHg] 89 mmHg (10/07/13 4:00 PM) 82 mmHg (10/07/13 11:30 AM) 80 mmHg (10/07/13 11:00 AM) Diastolic Blood Pressure [60-90 mmHg] 18 BRMIN (10/07/13 4:00 PM) 18 BRMIN (10/07/13 11:00 AM) 18 BRMIN (10/07/13 8:12 AM) Respiratory Rate [14-20 BRMIN] 66 bpm (10/07/13 4:00 PM) 60 bpm (10/07/13 11:30 AM) 61 bpm (10/07/13 11:00 AM) Peripheral Pulse Rate [60-100 bpm] 62.727 kg (10/07/13 4:48 AM) 63.636 kg (10/06/13 9:48 PM) Weight 23.74 m2 (10/07/13 4:48 AM) 26.51 m2 (10/06/13 9:48 PM) Body Mass Index Problem List Condition Effective Dates Status Health Status Informant Anxiety(Confirmed) Resolved Depression(Confirmed Resolved ) Hypothyroid(Confirme Resolved d) Allergies, Adverse Reactions, Alerts Substance Reaction Severity Status sulfa drugs Active Medications aspirin 324 mg, 4 tab, Route: CHEW, Drug form: CHEWTAB, ONCE, Dosing Weight 63.636, kg, Priority: STAT, Start date: 10/07/13 1:53:00, Stop date: 10/07/13 1:53:00 Notes: Take with food. Start Date: 10/07/13 Stop Date: 10/07/13 Status: Completed naproxen 375 mg, 1 tab, Route: PO, Drug form: TAB, Q8H, Dosing Weight 63.636, kg, PRN as needed for pain, Start date: 10/07/13 2:36:00, Duration: 30 day, Stop date: 09/15 2:35:00 Notes: (Same as: Naprosyn) Take with food. Start Date: 10/07/13 Stop Date: 10/07/13 Status: Discontinued Saline Flush 0.9% 5 ml, Route: IVP, Drug Form: INJ, Dosing Weight 63.636, kg, PRN, PRN Line Flush, Start date: 10/07/13 2:31:00, Duration: 30 day, Stop date: 11/06/13 2:30:00 Notes: (Same as: BD Posiflush) Start Date: 10/07/13 Stop Date: 10/07/13 Status: Discontinued Saline Flush 0.9% 5 mL, Route: IVP, Drug Form: INJ, Dosing Weight 63.636, kg, Q8H, PRN Line Flush, Start date: 10/06/13 22:30:00, Duration: 30 day, Stop date: 11/05/13 22:29:00, Administer at least once every 8 hours Special Instructions: Administer at least once every 8 hours Notes: (Same as: BD Posiflush) Start Date: 10/06/13 Stop Date: 10/07/13 Status: Discontinued Sodium Chloride 0.9% IV 1,000 mL 1,000 mL, Rate: 125 ml/hr, Infuse over: 8 hr, Route: IV, Dosing Weight 63.636 kg , Total Volume: 1,000, Start date: 10/07/13 2:31:00, Duration: 30 day, Stop date : 11/06/13 2:30:00 Start Date: 10/07/13 Stop Date: 10/07/13 Status: Discontinued Results ELECTROLYTES 1 2 3 Most recent to oldest [Reference Range]: 139 mEq/L (10/07/13 5:59 AM) 136 mEq/L (10/06/13 10:45 PM) Sodium Lvl [135-145 mEq/L] 4.3 mEq/L (10/07/13 5:59 AM) 3.6 mEq/L (10/06/13 10:45 PM) Potassium Lvl [3.5-5.1 mEq/L] 106 mEq/L (10/07/13 5:59 AM) 102 mEq/L (10/06/13 10:45 PM) Chloride Lvl [95-109 mEq/L] 28 mEq/L (10/07/13 5:59 AM) 28 mEq/L (10/06/13 10:45 PM) CO2 [24-32 mEq/L] 9.3 mEq/L *LOW* (10/07/13 5:59 AM) 9.6 mEq/L *LOW* (10/06/13 10:45 PM) AGAP [10.0-20.0 mEq/L] CHEM PANEL 1 2 3 Most recent to oldest [Reference Range]: 0.8 mg/dL (10/07/13 5:59 AM) 0.8 mg/dL (10/06/13 10:45 PM) Creatinine Lvl [0.5-1.4 mg/dL] 77 mL/min/1.73m2 1 *NA* (10/07/13 5:59 AM) 77 mL/min/1.73m2 2 *NA* (10/06/13 10:45 PM) eGFR 10 mg/dL (10/07/13 5:59 AM) 11 mg/dL (10/06/13 10:45 PM) BUN [7-22 mg/dL] 14 (10/06/13 10:45 PM) B/C Ratio [6-25] 88 mg/dL 3 (10/07/13 5:59 AM) 110 mg/dL 4 *HI* (10/06/13 10:45 PM) Glucose Lvl [70-99 mg/dL] 7.8 g/dL (10/06/13 10:45 PM) Total Protein [6.4-8.4 g/dL] 4.4 g/dL (10/06/13 10:45 PM) Albumin Lvl [3.5-5.0 g/dL] 3.4 g/dL (10/06/13 10:45 PM) Globulin [2.0-4.0 g/dL] 1.3 (10/06/13 10:45 PM) A/G Ratio [0.7-1.6] 9.5 mg/dL (10/07/13 5:59 AM) 9.5 mg/dL (10/06/13 10:45 PM) Calcium Lvl [8.5-10.5 mg/dL] 1.8 mg/dL (10/07/13 5:59 AM) Magnesium Lvl [1.8-2.4 mg/dL] 31 unit/L (10/06/13 10:45 PM) ALT [0-65 unit/L] 25 unit/L (10/06/13 10:45 PM) AST [0-37 unit/L] 85 unit/L (10/06/13 10:45 PM) Alk Phos [39-136 unit/L] 0.3 mg/dL (10/06/13 10:45 PM) Bili Total [0.2-1.3 mg/dL] 1Result Comment: The eGFR is calculated using [...] from the National Kidney Disease Education Program ( NKDEP) which additionally recommends that when the eGFR is used in patients with extremes of body mass index for purposes of drug dosing, the eGFR should be mul tiplied by the estimated BMI. 2Result Comment: The eGFR is calculated using [...] from the National Kidney Disease Education Program ( NKDEP) which additionally recommends that when the eGFR is used in patients with extremes of body mass index for purposes of drug dosing, the eGFR should be mul tiplied by the estimated BMI. 3Interpretive Data: Adult reference range values reflect the clinical guidelines of the [place] [employer]. 4Interpretive Data: Adult reference range values reflect the clinical guidelines of the [place] [employer]. CARDIAC ENZYMES 1 2 3 Most recent to oldest [Reference Range]: 87 unit/L (10/07/13 9:00 AM) 67 unit/L (10/07/13 5:59 AM) 90 unit/L (10/06/13 10:45 PM) Total CK [12-191 unit/L] 1.6 ng/mL (10/07/13 9:00 AM) 2.0 ng/mL (10/06/13 10:45 PM) CK MB [0.5-3.6 ng/mL] 1.8 (10/07/13 9:00 AM) 2.2 (10/06/13 10:45 PM) CK MB Index [0.0-2.5] <0.02 ng/mL (10/07/13 9:00 AM) <0.02 ng/mL (10/07/13 5:59 AM) <0.02 ng/mL (10/06/13 10:45 PM) Troponin-I [0.00-0.40 ng/mL] URINE AND STOOL 1 2 3 Most recent to oldest [Reference Range]: Clear (10/06/13 10:36 PM) UA Turbidity [Clear] Yellow *NA* (10/06/13 10:36 PM) UA Color [Yellow] 7.0 (10/06/13 10:36 PM) UA pH [5.0-8.0] <=1.005 *NA* (10/06/13 10:36 PM) UA Spec Grav [<=1.030] Negative (10/06/13 10:36 PM) UA Glucose [Negative] Negative (10/06/13 10:36 PM) UA Blood [Negative] Negative *NA* (10/06/13 10:36 PM) UA Ketones [Negative] Negative (10/06/13 10:36 PM) UA Protein [Negative] 0.2 EU/dL (10/06/13 10:36 PM) UA Urobilinogen [0.1-1.0 EU/dL] Negative *NA* (10/06/13 10:36 PM) UA Bili [Negative] Negative (10/06/13 10:36 PM) UA Leuk Est [Negative] Negative (10/06/13 10:36 PM) UA Nitrite [Negative] 0-2 /HPF (10/06/13 10:36 PM) UA WBC [None Seen /HPF] 0-2 /HPF (10/06/13 10:36 PM) UA RBC [0-2 /HPF] Few /HPF (10/06/13 10:36 PM) UA Bacteria [None Seen /HPF] Rare /LPF (10/06/13 10:36 PM) UA Sq Epi [Few /LPF] Performed (10/06/13 10:36 PM) Micro? HEMATOLOGY 1 2 3 Most recent to oldest [Reference Range]: 5.1 K/CMM (10/07/13 5:59 AM) 8.4 K/CMM (10/06/13 10:45 PM) WBC [3.7-10.4 K/CMM] 3.84 M/CMM *LOW* (10/07/13 5:59 AM) 4.03 M/CMM *LOW* (10/06/13 10:45 PM) RBC [4.20-5.40 M/CMM] 11.9 g/dL *LOW* (10/07/13 5:59 AM) 12.0 g/dL (10/06/13 10:45 PM) Hgb [12.0-16.0 g/dL] 35.2 % *LOW* (10/07/13 5:59 AM) 36.0 % (10/06/13 10:45 PM) Hct [36.0-48.0 %] 91.5 fL (10/07/13 5:59 AM) 89.5 fL (10/06/13 10:45 PM) MCV [81.0-99.0 fL] 30.9 pg (10/07/13 5:59 AM) 29.9 pg (10/06/13 10:45 PM) MCH [27.0-31.0 pg] 33.7 g/dL (10/07/13 5:59 AM) 33.4 g/dL (10/06/13 10:45 PM) MCHC [32.0-36.0 g/dL] 13.5 % (10/07/13 5:59 AM) 13.5 % (10/06/13 10:45 PM) RDW [11.5-14.5 %] 123 K/CMM *LOW* (10/07/13 5:59 AM) 125 K/CMM *LOW* (10/06/13 10:45 PM) Platelet [133-450 K/CMM] 8.7 fL (10/07/13 5:59 AM) 8.2 fL (10/06/13 10:45 PM) MPV [7.4-10.4 fL] 69.9 % (10/07/13 5:59 AM) 82.9 % *HI* (10/06/13 10:45 PM) Segs [45.0-75.0 %] 18.9 % *LOW* (10/07/13 5:59 AM) 9.8 % *LOW* (10/06/13 10:45 PM) Lymphocytes [20.0-40.0 %] 9.3 % (10/07/13 5:59 AM) 6.4 % (10/06/13 10:45 PM) Monocytes [2.0-12.0 %] 1.2 % (10/07/13 5:59 AM) 0.5 % (10/06/13 10:45 PM) Eosinophils [0.0-4.0 %] 0.7 % (10/07/13 5:59 AM) 0.4 % (10/06/13 10:45 PM) Basophils [0.0-1.0 %] 3.6 K/CMM (10/07/13 5:59 AM) 7.0 K/CMM (10/06/13 10:45 PM) Segs-Bands # [1.5-8.1 K/CMM] 1.0 K/CMM (10/07/13 5:59 AM) 0.8 K/CMM *LOW* (10/06/13 10:45 PM) Lymphocytes # [1.0-5.5 K/CMM] 0.5 K/CMM (10/07/13 5:59 AM) 0.5 K/CMM (10/06/13 10:45 PM) Monocytes # [0.0-0.8 K/CMM] 0.1 K/CMM (10/07/13 5:59 AM) Eosinophils # [0.0-0.5 K/CMM] Medications Administered During Your Visit No data available for this section Immunizations No data available for this section Procedures Procedure Type Body Site Date of Procedure Related Diagnosis section Excision of tumor of brain meninges Social History Social History Type Response Substance Abuse Use: None Alcohol Use: Past, Previous treatment: None, Has alcohol use interfered with work or home life? No, Do you ever drink more than intended? No, Has anyone been hurt or at risk by your drinking? No, Ready to change: No, Concerns about alcohol use in household: No Smoking Status Never smoker, Exposure to Tobacco Smoke None, Cigarette Smoking Last 365 Days No, Reg Smoking Cessation Counseling No
--- OUTSIDE RECORDS SUMMARY | 2018-10-10 17:32 | XMS REPORT | Summary of Care ---
Author Author [facility] [place] Organization [facility] [place] Address Unknown Phone Unavailable Encounter HQ Radhar_shilpa(FIN) [id number] Date(s): 05/16/17 - 05/16/17 [facility] [place] [address] [place] [phone] Encounter Diagnosis Encounter for screening mammogram for malignant neoplasm of breast (Final) - 05/21/17 Discharge Disposition: Home or Self Care Attending [...]
--- OUTSIDE RECORDS SUMMARY | 2018-10-10 17:32 | XMS REPORT | Summary of Care ---
Author Author [facility] [place] Organization [facility] [place] Address Unknown Phone Unavailable Encounter HQ Alycia_shilpa(FIN) [id number] Date(s): 06/02/17 - 06/02/17 [facility] [place] [address] [place] [phone] Encounter Diagnosis Unspecified lump in the right breast, unspecified quadrant (Final) - 06/06/17 Inconclusive mammogram (Final) - Discharge Disposition: Home or Self Care Attending [...]
--- OUTSIDE RECORDS SUMMARY | 2018-10-10 17:33 | XMS REPORT | Encounter Summary ---
Author Organization Unknown Address [address] [place] [address] Phone [phone] Care Team Providers Care Fishing Rod Trimmer Name Role Phone Dr. Rob Martin 3 [phone] Hesham Millan MD 82 [phone] Juan Purvis MD 107 [phone] Reason for Visit hypothyroidism Instructions 1. Hypothyroidism TSH, serum or plasma 2. 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 Patient educational handouts: No information available. Plan of Care Reminders Provider Appointments None recorded. Lab TSH, Serum or Plasma 08/24/2018 [facility] Laboratory Referral None recorded. Procedures None recorded. Surgeries None recorded. Imaging None recorded. Medications Name Start Date clorazepate dipotassium 3.75 mg tablet TAKE 1 TABLET BY MOUTH EVERY DAY irbesartan 300 mg tablet Take 1 tablet every day by oral route. levothyroxine 100 mcg tablet Take 1 tablet every day by oral route. paroxetine 30 mg tablet 1 tab po daily tobramycin 0.3 %-dexamethasone 0.1 % eye drops,suspension Instill 1 drop every 6 hours by ophthalmic route for 7 days. valacyclovir 1 gram tablet Medications Administered None recorded. Vitals Height Weight BMI Blood Pressure 5 ft 2 in 125 lbs 22.9 kg/m2 136/88 mm[Hg] Lab Results None recorded. Allergies Code Code System Name Reaction Severity Status Onset 128225 RxNorm Carisoprodol Active 02/25/2012 3728823 RxNorm Egg Other Mild to Moderate Active 02/25/2012 Sulfa (Sulfonamide Antibiotics) Active 02/25/2012 Ibuprofen Active 05/25/2015 Rj Inhibitors Cough Moderate Active 714404 RxNorm Banana Nausea Mild Active Problems Name Status Onset Date Source Coronary Atherosclerosis Active 07/09/2012 Osteoarthritis Active 07/09/2012 Generalized Anxiety Disorder Active 07/31/2012 Herpes Simplex Active 12/14/2012 Pure Hypercholesterolemia Active 12/14/2012 Anemia of Chronic Disease Active 12/14/2012 Depressive Disorder Active 12/14/2012 Systemic Lupus Erythematosus Active 12/14/2012 SjGren's Syndrome Active 12/14/2012 Osteopenia Active 05/25/2015 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 Primary Thrombocytopenia Active 04/30/2017 Allergic Rhinitis Active 06/27/2017 Hypothyroidism Active Anxiety Active Depression - Motion Active Procedures Date Name Performed by 05/05/2012 Colonoscopy Information not available 05/05/2009 Orthopedic Surgery Information not available 11/25/2008 Colonoscopy Information not available 05/05/1992 Hysterectomy (Partial) Information not available 05/05/1992 Neurosurgery (Brain) Information not available 05/05/1988 Orthopedic Surgery Information not available 05/05/1987 Neurosurgery (Brain) Information not available 05/05/1986 Neurosurgery (Brain) Information not available 05/05/1982 Caesarean Section Information not available 05/05/1973 Caesarean Section Information not available Vaccine List Vaccine Type pneumococcal conjugate PCV 13 05/25/20151 mL pneumococcal polysaccharide PPV23 11/03/2011 Tdap 05/05/2006 11/12/20170.5 mL zoster 05/05/2007 zoster subunit 10/20/20170.5 mL 03/21/2018 0.5 mL Social History Smoking Status Never Smoker Past Encounters 08/24/2018 Hypothyroidism; Primary Thrombocytopenia; Moderate Major Depression; Brown- SQuard Syndrome Portia Moore MD: [id number] [facility], [address], [place] [address], Ph. History of Present Illness Thyroid Reported By: Patient Notes: No constipation , no diarrhea, no hair loss , no mood changes , no weight gain or loss, no palpaitation ,no cold intolerance Note:Cut down on sugar & dr. woods. Reviewed all labs with pt. No chest pain , no shortness of breath, no palpitations ,no dizziness , no diaphoresis , no weakness or numbness in arms or legs , no visual loss . here to get tsh levels done so she can check if she needs to be on htad same dose of 100 mcg po daily of levothyroxine
Review of Systems:ROS as noted in the HPI Review of Systems None recorded. Physical Exam General Adult Exam (Female) Reported By: Patient Constitutional: General Appearance: well-developed; bmi - 22.9. Level of Distress: NAD. Ambulation: ambulating normally Psychiatric: Insight: good judgement; talkative. Mental Status: active and alert, normal mood, normal affect. Orientation: to time, to place, to person Head: Head: normocephalic, atraumatic Eyes: Lids and Conjunctivae: non-injected, no discharge, no pallor. Pupils: PERRLA. Corneas: grossly intact. EOM: EOMI. Lens: clear. Sclerae: non-icteric ENMT: Ears: no lesions on external ear, EACs clear, TMs clear. Hearing: no hearing loss. Nose: no lesions on external nose, nares patent, no septal deviation, nasal passages clear, no sinus tenderness, no nasal discharge. Lips, Teeth, and Gums: no mouth or lip ulcers, no bleeding gums, normal dentition. Oropharynx: moist mucous membranes, no erythema, no exudates, tonsils not enlarged Neck: Neck: supple, trachea midline, no masses, FROM. Lymph Nodes: no cervical LAD, no supraclavicular LAD, no axillary LAD. Thyroid: no enlargement, non- tender, no nodules Lungs: Respiratory effort: no dyspnea. Auscultation: breath sounds normal, good air movement, CTA except as noted, no wheezing, no rales/crackles, no rhonchi Cardiovascular: Heart Auscultation: RRR, normal S1, normal S2, no murmurs, no rubs, no gallops Abdomen: Bowel Sounds: normal. Inspection and Palpation: soft, non-distended, no tenderness, no guarding, no rebound tenderness, no masses, no CVA tenderness. Liver: non-tender, no hepatomegaly Musculoskeletal:: Motor Strength and Tone: normal motor strength, normal tone. Joints, Bones, and Muscles: normal movement of all extremities, no bony abnormalities, no contractures, no malalignment, no tenderness. Extremities: no cyanosis, no edema, no varicosities Neurologic: Gait and Station: normal gait, normal station. Cranial Nerves: grossly intact. Sensation: grossly intact Skin: Inspection and palpation: no rash, no lesions, no abnormal nevi, good turgor, no jaundice. Nails: normal Back: Thoracolumbar Appearance: normal curvature
--- OUTSIDE RECORDS SUMMARY | 2018-10-10 17:33 | XMS REPORT | Summary of Care ---
Author Author [facility] Organization [facility] Address Unknown Phone Unavailable Encounter HQ Alycia_shilpa(FIN) [id number] Date(s): 07/07/15 - 07/07/15 [facility] [address] [place], [place] [address] [phone] Discharge Disposition: Home Attending Physician: Yaya Pham MD Vital Signs No data available for [...] Procedures Procedure Date Related Diagnosis Body Site section Excision of tumor of brain meninges [...] Days No; Reg Smoking Cessation Counseling No Assessment and Plan No data available for this section
--- OUTSIDE RECORDS SUMMARY | 2018-10-10 17:33 | XMS REPORT ---
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 Allergies, Adverse Reactions, Alerts This patient has no known allergies or adverse reactions. Medications This patient has no known medications. Results Test Description Test Time Test Comments Text Results Atomic Results Result Comments MRI BRAIN WO 2017-10-16 15:00:00 [place] [address] Patient Name: JOCELYN CENTENO MR #: [id number] : 1945 Age/Sex: 71/F Req #: [id number] [facility] Physician: MICHELL TRACEY MD Ordered by: MICHELL TRACEY MD Report #: [id number] Location: [facility] Room/Bed: [place] [address] Procedure: [id number] MRI/MRI BRAIN WO Exam Date: Exam Time: REPORT STATUS: Signed Exam: Brain MRI without IV contrast History: Passed out Comparison studies: Head CT 10/15/2017 Technique: Sagittal and axial T2 FS, axial coronal T2 flair, axial T1 FLAIR, T2*GRE and DWI. Intravenous contrast: None Findings: Scalp and bone marrow: Changes of left occipital craniectomy and mastoidectomy. Brain sulci: Appropriate for age. Ventricles: Normal in size. No hydrocephalus. Extra axial spaces: No mass, no fluid collection. Parenchyma: No abnormal signal intensities. No masses, hemorrhage, acute or chronic vascular insults. Suprasellar region: No abnormalities. Craniocervical junction: Patent foramen magnum. No Chiari malformation. Vessels: Normal flow-voids in the arteries and sinuses. IMPRESSION: No acute intracranial abnormalities. Chronic findings: 1. Mild supratentorial chronic microvascular ischemic changes. 2. Surgical changes of left occipital craniectomy and mastoidectomy. Signed by: Dr. Josse Garcia M.D. on 10/16/2017 3:06 PM Dictated By: JOSSE GARCIA MD 1506 Transcribed By: ANA M on 10/16/17 1506 COPY TO: MICHELL TRACEY MD CHEST SINGLE (PORTABLE) 2017-10-15 18:10:00 [place] [address] Patient Name: JOCELYN CENTENO MR #: [id number] : 1945 Age/Sex: 71/F Req #: [id number] Adm Physician: MICHELL TRACEY MD Ordered by: PARISH BORJAS MD Report #: [id number] Location: [facility] Room/Bed: [place] [address] Procedure: [id number] DX/CHEST SINGLE (PORTABLE) Exam Date: 10/15/17 Exam Time: 1730 REPORT STATUS: Signed PROCEDURE: A single AP view of the chest. COMPARISON: 06/17/11 INDICATIONS: SYNCOPE FINDINGS: Lines/tubes: None. Lungs: The lungs are well inflated and clear. There is no evidence of pneumonia or pulmonary edema. Pleura: There is no pleural effusion or pneumothorax. Heart and mediastinum: The cardiac silhouette is borderline in size. Bones: No acute bony abnormality. IMPRESSION: 1. No acute cardiopulmonary disease. Dictated by: Ganesh Sinclair M.D. on 10/15/2017 at 18:10 Electronically approved by: Ganesh Sinclair M.D. on 10/15/2017 at 18:10 Dictated By: GANESH SINCLAIR MD 09 Transcribed By: DONALDO on 10/15/171809 COPY TO: PARISH BORJAS MD CT BRAIN WO 2017-10-15 14:34:00 [place] [address] Patient Name: JOCELYN CENTENO MR #: [id number] : 1945 Age/Sex: 71/F Req #: [id number] Adm Physician: Ordered by: PARISH BORJAS MD Report #: [id number] Location: ER Room/Bed: Procedure: [id number] CT/CT BRAIN WO Exam Date: 10/15/17 Exam Time: 1400 REPORT STATUS: Signed History:Syncope. History of tumor removal Comparison studies:None Technique: Axial images were obtained from the skull base to the vertex. Coronal and sagittal images reconstructed from the axial data. Intravenous contrast: None Findings: Scalp/skull: Left occipital craniectomy changes. Left mastoidectomy changes. Extra-axial spaces: No masses. No fluid collections. Brain sulci: Age-appropriate. Ventricles: Age- appropriate. No hydrocephalus. Parenchyma: Few hypodensities in the supratentorial white matter are small vessel ischemic changes. No masses, hemorrhage, acute or chronic cortical vascular insults. Sellar/suprasellar region: No abnormalities. Craniocervical junction: Patent foramen magnum. No Chiari one malformation. Incidental findings: Atherosclerotic calcifications in the carotid siphons . Impression: No acute abnormalities. Chronic findings: 1. Mild supratentorial white matter small vessel ischemic changes. 2. Left occipital craniectomy and mastoidectomy changes. Signed by: DR Ivan Goodwin M.D. on 10/15/2017 2:37 PM Dictated By: IVAN UNDERWOOD MD 1437 Transcribed By: ANA M on 10/15/17 1437 COPY TO: PARISH BORJAS MD
[2018-10-10 17:59] LABS: BASOPHILS % 0.5 % (0.0-1.0); EOSINOPHILS % 0.8 % (0.0-6.0); HEMATOCRIT 29.2 % (34.2-44.1); HEMOGLOBIN 9.9 g/dL (12.0-16.0); LYMPHOCYTES # (AUTO) 0.6 (1.0-3.2); LYMPHOCYTES % 14.9 % (18.0-39.1); MEAN CORPUSCULAR HEMOGLOBIN 30.1 pg (28-32); MEAN CORPUSCULAR HGB CONC 33.9 g/dL (31-35); MEAN CORPUSCULAR VOLUME 88.8 fL (81-99); MONOCYTES # (AUTO) 0.3 (0.2-0.8); MONOCYTES % 8.5 % (4.4-11.3); NEUTROPHILS # (AUTO) 2.8 (2.1-6.9); NEUTROPHILS % 74.8 % (38.7-80.0); PLATELET COUNT 107 x10e3/uL (140-360); RED BLOOD COUNT 3.29 x10e6/uL (3.6-5.1)
[2018-10-10 18:06] LABS: INR 0.95; PROTHROMBIN TIME 13.2 seconds (11.9-14.5)
[2018-10-10 18:08] LABS: PARTIAL THROMBOPLASTIN TIME 28.6 seconds (23.8-35.5)
[2018-10-10 18:17] LABS: ALANINE AMINOTRANSFERASE 17 IU/L (0-55); ALBUMIN 3.5 g/dL (3.5-5.0); ALBUMIN/GLOBULIN RATIO 1.3 (0.8-2.0); ALKALINE PHOSPHATASE 85 IU/L (40-150); ANION GAP 11.8 mmol/L (8-16); BLOOD UREA NITROGEN 15 mg/dL (7-26); BUN/CREATININE RATIO 17 (6-25); CALCIUM 8.7 mg/dL (8.4-10.2); CARBON DIOXIDE 23 mmol/L (22-29); CHLORIDE 103 mmol/L (98-107); CREATINE KINASE 83 IU/L (29-168); CREATININE, SERUM 0.89 mg/dL (0.57-1.11); EST GLOMERULAR FILTRATION RATE > 60 ML/MIN (60-); GLUCOSE 81 mg/dL (74-118); POTASSIUM 3.8 mmol/L (3.5-5.1); SODIUM 134 mmol/L (136-145)
--- NOTE | 2018-10-10 18:20 | Diagnostic Imaging Report ---
EXAMINATION: CHEST SINGLE (PORTABLE) INDICATION: ^SOB ^[id number] ^1749 ^Y COMPARISON: None FINDINGS: AP view TUBES and LINES: None. LUNGS: Lungs are well inflated. Mild bilateral central pulmonary vascular congestion. No pulmonary edema. PLEURA: No pleural effusion or pneumothorax. HEART AND MEDIASTINUM: The left ventricle appears prominent. BONES AND SOFT TISSUES: No acute osseous lesion. Mild elevation of the left hemidiaphragm. UPPER ABDOMEN: No free air under the diaphragm. IMPRESSION: No acute thoracic abnormality. Signed by: Dr. Kanwal Sandoval M.D. on 10/10/2018 6:17 PM
--- NOTE | 2018-10-10 18:24 | NUR ---
PT AMBULATORY TO RR TO COLLECT URINE SAMPLE. AMBULATED W/O ASSISTANCE/STEADY GAIT/RETURNED TO BED W/O INCIDENT. NAD AT THIS TIME.
[2018-10-10 18:29] LABS: BILIRUBIN,URINE NEGATIVE (NEGATIVE); CLARITY,URINE SL CLOUDY (CLEAR); COLOR,URINE YELLOW (YELLOW); KETONES,URINE 1+ (NEGATIVE); LEUKOCYTE ESTERASE ,URINE NEGATIVE (NEGATIVE); NITRITE,URINE NEGATIVE (NEGATIVE); PROTEIN,URINE DIPSTICK NEGATIVE (NEGATIVE); URINE UROBILINOGEN 0.2 mg/dL (0.2 - 1)
[2018-10-10 18:33] LABS: RBC,URINE 0-5 /HPF (0-5); WBC,URINE (MAN) 0-5 /HPF (0-5)
[2018-10-10 18:34] LABS: BACTERIA,URINE FEW /HPF; EPITHELIAL CELLS,URINE FEW /LPF
--- NOTE | 2018-10-10 18:45 | NUR ---
bedside report was given, patient finishing normal saline 1 liter provided by [facility] services.
[2018-10-10 19:00] VITALS: BP 172/81
== END 2018-10-10 19:06 | disposition home or self-care (01) ==
LOC: ER 17:28
DX: R55 Syncope and collapse (principal); R11.0 Nausea; T67.3XXA Heat exhaustion, anhydrotic, initial encounter
CPT/HCPCS: 36415; 71045; 80053; 81001; 82550; 82553; 84484; 85025; 85610; 85730; 87086; 93005; 99283

== ENCOUNTER 2019-10-18 08:50 | Observation (INO) | payer MEDICARE, OTHER ==
[2019-10-14 15:41] LABS: BASOPHILS % 0.7 % (0.0-1.0); EOSINOPHILS % 0.5 % (0.0-6.0); HEMATOCRIT 33.5 % (34.2-44.1); HEMOGLOBIN 10.8 g/dL (12.0-16.0); LYMPHOCYTES % 21.8 % (18.0-39.1); MEAN CORPUSCULAR HEMOGLOBIN 29.9 pg (28-32); MEAN CORPUSCULAR HGB CONC 32.2 g/dL (31-35); MEAN CORPUSCULAR VOLUME 92.8 fL (81-99); MONOCYTES # (AUTO) 0.6 (0.2-0.8); MONOCYTES % 13.9 % (4.4-11.3); NEUTROPHILS # (AUTO) 2.8 (2.1-6.9); NEUTROPHILS % 62.9 % (38.7-80.0); PLATELET COUNT 147 x10e3/uL (140-360); RED BLOOD COUNT 3.61 x10e6/uL (3.6-5.1); RED CELL DISTRIBUTION WIDTH 13.4 % (11.7-14.4)
--- NOTE | 2019-10-14 15:41 | Diagnostic Imaging Report ---
EXAMINATION: CHEST 2 VIEWS INDICATION: Pre-operative COMPARISON: None FINDINGS: LINES/TUBES:None LUNGS:The lungs are hyperinflated. No focal consolidation or pulmonary edema. PLEURA:No pleural effusion or pneumothorax. MEDIASTINUM:The cardiomediastinal silhouette appears normal in size and shape. BONES/SOFT TISSUES:No acute osseous injury. ABDOMEN:No free air under the diaphragm. IMPRESSION: Hyperinflated lungs. No focal pneumonia or pulmonary edema. Signed by: Mari Flowers MD on 10/14/2019 3:38 PM
[~2019-10-18] VITALS: Ht 157.5 cm; Wt 56.2 kg
[~2019-10-18 08:50] MED LIST: CLORAZEPATE D3.75 MG PO; IRBESARTAN300 MG PO; LEVOTHYROXINE100 MCG PO; PAROXETINE HCL30 MG PO; ROPIVACAINE 246.25 MG, EPINEPHRINE HCL 1:1000 1ML 0.5 MG, CLONIDINE HCL 0.08 MG in SODI... INJ ONE
[2019-10-18] MEDS ORDERED: DEXAMETHASONE SOD PHOS 10 MG/1 ML VIAL ONE (09:16)
[2019-10-18] MEDS ORDERED: GABAPENTIN 300 MG CAP ONE (09:16)
[2019-10-18] MEDS ORDERED: CELECOXIB 200 MG CAP ONE (09:16)
[2019-10-18] MEDS ORDERED: CEFAZOLIN SOD 1 GM/NS 50ML 100 ML IV ONE (09:16)
[2019-10-18] MEDS ORDERED: BUPIVACAINE 7.5MG/ML /DEXTROSE 82.5MG/ML 2 ML AMP INJ ONE (09:27)
[2019-10-18] MEDS ORDERED: TRANEXAMIC ACID 1,000 MG/10 ML ML ONE (09:30)
[2019-10-18] MEDS ORDERED: SODIUM CHLORIDE 0.9% 500ML 500 ML ONE (09:30)
[2019-10-18] MEDS ORDERED: VANCOMYCIN HCL 1,000 MG ONE (09:31)
[2019-10-18] MEDS ORDERED: BACITRACIN 50,000 UNIT VIAL ONE (09:31)
[2019-10-18] MEDS ORDERED: SUGAMMADEX SODIUM 200 MG/2 ML VIAL IV ONE (11:13)
[2019-10-18] MEDS ORDERED: ZOLPIDEM TARTRATE 5 MG TAB PO PRN (11:15)
[2019-10-18] MEDS ORDERED: ONDANSETRON HCL INJ 2MG/ML 2ML 2 MG/ML VIAL IV PRN (11:15)
[2019-10-18] MEDS ORDERED: DOCUSATE SODIUM 100 MG CAP PO PRN (11:15)
[2019-10-18] MEDS ORDERED: KETOROLAC TROMETHAMINE 30 MG/ML VIAL IV PRN (11:15)
[2019-10-18] MEDS ORDERED: HYDROCODONE/APAP 7.5MG-325MG 1 EA TAB PO PRN (11:15)
[2019-10-18] MEDS ORDERED: ACETAMINOPHEN 650 MG SUPP PR PRN (11:15)
[2019-10-18] MEDS ORDERED: DIPHENHYDRAMINE HCL INJ 50 MG/ML VIAL IV PRN (11:15)
--- NOTE | 2019-10-18 13:00 | Diagnostic Imaging Report ---
EXAM: PELVIS AP 1-2 VIEWS DATE: 10/18/2019 12:29 PM INDICATION: Postop COMPARISON: None FINDINGS: There are postsurgical changes from total right hip arthroplasty. Hardware appears intact and in anatomic alignment. There is no evidence for acute fracture or dislocation. No focal lytic or blastic abnormality is identified. Soft tissue gas is noted adjacent to the right hip, likely reflecting recent postoperative state. Overlying skin diane noted. IMPRESSION: Expected post surgical changes from recent right hip arthroplasty. Signed by: Dr. Barrett Sidhu MD on 10/18/2019 12:57 PM
--- NOTE | 2019-10-18 13:53 | Operative Report ---
DATE OF PROCEDURE: 10/18/2019 SURGEON: Hesham Carmen MD I&C TECH: Joel Mosquera, certified PA. PREOPERATIVE DIAGNOSIS: Osteoarthritis, right hip. POSTOPERATIVE DIAGNOSIS: Osteoarthritis, right hip. PROCEDURE: Right total hip arthroplasty. INDICATIONS: The patient is a 73-year-old lady, who has osteoarthritis of her right hip. She has failed conservative management and would like to proceed with definitive intervention. The risks and benefits of a hip replacement were explained. The recovery was discussed. All of her questions were answered. She states she understands and wishes to proceed. PROCEDURE IN DETAIL: The patient was brought to the operating room and placed under general anesthetic. She received prophylactic antibiotics and tranexamic acid in the holding area. She declined a regional block. She was positioned in the left lateral decubitus position. Her right hip was prepped and draped in a sterile manner. A preoperative time-out was performed. A limited incision posterior approach was made to the right hip. Hemostasis was obtained with electrocautery. The fascia was incised and a Charnley self-retaining retractor was placed. The posterior capsule was carefully exposed. Further hemostasis was obtained with electrocautery. The short external rotators were partially released. The capsule was released. The hip was dislocated and an oscillating saw was used to resect the femoral head. Complete loss of articular cartilage was noted on the weightbearing dome of the femoral head. Acetabular retractors were carefully placed. The remnant of the labrum was carefully excised. The true floor of the acetabulum was established with a 46 mm reamer. The socket was then reamed up to 51 mm. This accomplished bleeding hemispherical cancellous bone. A Boni Biomet 52 mm outer diameter OsseoTi socket was then impacted into place. Fixation was augmented with a single 20 mm screw placed into the ilium. A highly cross-linked polyethylene liner with a 36 mm inner diameter was then impacted into place. Care was taken to make sure that there was no evidence of soft tissue interposition. The hip was thoroughly irrigated on several occasions throughout the case with a shower tip pulsatile lavage and a spray mixture of diluted vancomycin and polymyxin spray. The socket was packed with a moist soaked lap sponge and attention was directed towards the proximal femur. A box cutting osteotome and taper pin reamer were used to establish entry to the femoral canal. The Taperloc broaches were impacted. A size 5 stem had good canal fill and rotational stability for trial reduction. A standard 36 mm head was felt to provide appropriate soft tissue balancing. She had excellent stability to a full arc of motion. The trial implants were removed. The hip was further irrigated with a shower tip pulsatile lavage. The Taperloc stem was then impacted into place. This was placed in about 15 degrees of anteversion. The stem was clean and dry when a standard 36 mm neck and ceramic head were seated into place. A final reduction was performed. A 100 mL premixed pericapsular SHAYY injection was placed into the surrounding soft tissue. The posterior capsule was repaired with #2 Ethibond. The piriformis tendon was reapproximated with #2 Ethibond. A 500 mg of vancomycin powder was sprinkled into the wound. The fascia was closed with interrupted #2 Ethibond. The skin was closed with subcuticular Vicryl and diane. She was returned to the supine position. Estimated blood loss was about 50 mL. All needle and sponge counts were correct. Hesham Carmen MD DR/FERDINAND /[id number]
[2019-10-18] MEDS ORDERED: SEVOFLURANE INHAL SOLN 250 ML PEN BTL ONE (14:24)
[2019-10-18] MEDS ORDERED: PROPOFOL IV EMULSION 10 MG/ML 20 ML VIAL ONE (14:24)
[2019-10-18] MEDS ORDERED: LIDOCAINE HCL 2% LOCAL INJ 5 ML SDV VIAL INJ ONE (14:24)
[2019-10-18] MEDS ORDERED: DEXAMETHASONE SOD PHOS INJ 4 MG/ML VIAL ONE (14:24)
[2019-10-18] MEDS ORDERED: ONDANSETRON HCL INJ 2MG/ML 2ML 2 MG/ML VIAL ONE (14:24)
[2019-10-18] MEDS ORDERED: FENTANYL CITRATE/PF 100MCG/2 ML INJ ONE (14:56)
[2019-10-18 15:47] VITALS: BP 101/55
--- NOTE | 2019-10-18 15:47 | NUR ---
Patient arrived to the unit @ 1547 via stretcher. Patient in stable condition, no s/s of distress noted. Abduction pillow applied. Dressing to the right hip intact, dry and Clean. Bed in lowest position and locked. Call light within reach.
[2019-10-18 16:03] VITALS: BP 129/63
[2019-10-18] MEDS ORDERED: VALTREX500 MG PO (16:07)
--- NOTE | 2019-10-18 16:07 | NUR ---
DR COBOS OFFICE PREARRANGED FOLLOWING DISCHARGE PLAN OF: HOME TO [address] [place] HAD HOME HEALTH SET UP WITH SIGNATURE BUT REFUSED AND WANTS SPECIALTY PT IN [place] STARTING FRIDAY DME 3 IN ONE COMMODE. AND ROLLING WALKER WITH WHEELS. PROVIDED BY [facility] [phone] WONG SIGNED AND ON CHART COPY LEFT WITH PATIENT GAVE CARD FOR QUESTIONS AND OR CONCERNS.
[2019-10-18] MEDS: SODIUM CHLORIDE 0.9% 1000ML 1,000 ML IV SCH (16:15)
[2019-10-18] MEDS: HYDROCODONE/APAP 5MG-325MG TAB PO PRN ×2 (16:48→21:00)
[2019-10-18] MEDS: CEFAZOLIN SOD 1 GM/NS 50ML 50 ML IV SCH (16:54)
[2019-10-18] MEDS: CELECOXIB 200 MG CAP PO SCH (17:27)
[2019-10-18 18:11] VITALS: BP 129/63
--- NOTE | 2019-10-18 18:47 | NUR ---
WALKING ROUNDS PERFORMED, RECEIVED PT LAYING SEMI FOWLERS IN BED, AAOX3, RR EVEN AND NON-LABORED, ON ROOM AIR. NO S/SX OF DISTRESS NOTED. PT IS DTV. ABDUCTOR PILLOW NOTED BETWEEN LEGS. LEFT PT LAYING SEMI FOWLERS IN BED, BED IN LOW LOCKED POSITION, SIDE RAILS UPX2, CALL LIGHT AND PHONE WITHIN REACH. FAMILY AT BEDSIDE.
--- NOTE | 2019-10-18 19:17 | NUR ---
Completed rounding and bedside shift report with the on coming night nurse. Patient in stable condition, No s/s of distress noted. Abduction pillow applied. IV fluids infusing, site asymptomatic and patent, transparent dressing C/D/I. Bed in lowest position and locked. Call light within reach.
[2019-10-18 20:00] VITALS: BP 108/55
--- NOTE | 2019-10-18 20:30 | NUR ---
PT ASSISTED TO BATHROOM TO VOID AND THEN AMBULATED IN [place] WITH WALKER 100FT. STEADY GAIT NOTED. ASSISTED PT BACK TO BED. LEFT PT LAYING SEMI FOWLERS IN BED, BED IN LOW LOCKED POSITION, SIDE RAILS UPX2, CALL LIGHT AND PHONE WITHIN REACH. ABDUCTOR PILLOW BETWEEN LEGS.
[2019-10-18] MEDS: ASPIRIN 325 MG TAB PO SCH (20:56)
[2019-10-18 21:39] VITALS: BP 108/55
--- NOTE | 2019-10-18 22:00 | NUR ---
SPOKE WITH MD DEGROOT CONCERNING PT HOME MEDICATIONS. OK TO CONTINUE HOME MEDICATIONS.
[2019-10-18] MEDS ORDERED: VALACYCLOVIR HCL 500 MG TAB PO SCH (22:15)
[2019-10-18] MEDS ORDERED: PAROXETINE HCL 20 MG TAB PO SCH (22:19)
[2019-10-18] MEDS ORDERED: CLORAZEPATE DIPOTASSIUM 3.75 MG TAB PO SCH (22:30)
[2019-10-18] MEDS ORDERED: LEVOTHYROXINE SODIUM 100 MCG TAB PO SCH (22:45)
[2019-10-19] VITALS: BP 113/66
[2019-10-19] MEDS: CEFAZOLIN SOD 1 GM/NS 50ML 50 ML IV SCH ×2 (00:45→08:48)
[2019-10-19] MEDS: SODIUM CHLORIDE 0.9% 1000ML 1,000 ML IV SCH (02:15)
[2019-10-19] MEDS: HYDROCODONE/APAP 5MG-325MG TAB PO PRN ×2 (03:43→13:15)
[2019-10-19 04:00] VITALS: BP 134/70
[2019-10-19 05:39] LABS: HEMATOCRIT 29.1 % (34.2-44.1); HEMOGLOBIN 9.4 g/dL (12.0-16.0)
--- NOTE | 2019-10-19 06:57 | Consultation ---
DATE OF CONSULTATION: REASON FOR CONSULTATION: Postop medical management. HISTORY OF PRESENT ILLNESS: The patient is a 73-year-old lady, status post right hip arthroplasty, is doing very well postoperatively. Denies any fevers, chills, nausea, vomiting, headache, shortness of breath, or dizziness. REVIEW OF SYSTEMS: Denies any fevers, chills, nausea, vomiting, headache, shortness of breath, or dizziness. PAST MEDICAL HISTORY: Significant for hypertension, hypothyroidism. MEDICATIONS: See MAR. ALLERGIES: IBUPROFEN, SOMA, SULFA, BANANAS AND EGGS. FAMILY HISTORY: Noncontributory. SOCIAL HISTORY: Nonsmoker. Nondrinker. PHYSICAL EXAMINATION: GENERAL: No apparent distress. LUNGS: Clear to auscultation bilaterally. NECK: Supple. CARDIOVASCULAR: Regular rate and rhythm. ABDOMEN: Good bowel sounds. Soft, nontender. EXTREMITIES: No clubbing or cyanosis. No seepage on her right hip bandage. NEUROLOGIC: Nonfocal. Moves all extremities x4. ASSESSMENT/PLAN: 1. Status post right hip arthroplasty with right hip pain. Continue with postoperative care and physical therapy. 2. Anemia. Check a CBC. 3. Hypertension. Continue with her medication. 4. Hypothyroidism. Continue with her medication. 5. Anxiety disorder. Continue with her medication. Please see hospital chart for full details. MD JEWEL Sullivan/FERDINAND /[id number]
--- NOTE | 2019-10-19 07:00 | NUR ---
BEDSIDE ROUNDS COMPLETE NO DISTRESS NOTED, UPDATED ON POC VOICED UNDERSTANDING, DENIES PAIN AT THIS TIME, R AC 20GSL NO SS OF INFILTRATION NOTED, NO OTHER CO VOICED CALL LIGHT IN REACH WILL CONTINUE TO MONITOR
[2019-10-19 08:33] VITALS: BP 134/70
[2019-10-19] MEDS: ASPIRIN 325 MG TAB PO SCH (08:49)
[2019-10-19] MEDS: CELECOXIB 200 MG CAP PO SCH (08:51)
[2019-10-19 08:53] VITALS: BP 125/64
[2019-10-19] MEDS ORDERED: LIDOCAINE 4% PATCH TP SCH (09:00)
[2019-10-19] MEDS ORDERED: LEVOTHYROXINE SODIUM 100 MCG TAB PO SCH ×2 (09:00→22:33)
[2019-10-19] MEDS ORDERED: IRBESARTAN 150 MG TAB PO SCH (09:00)
[2019-10-19] MEDS ORDERED: NON-FORMULARY MEDICATION (Irbesartan 300 MG) PO SCH (09:00)
[2019-10-19] MEDS ORDERED: ONDANSETRON HCL 4 MG ORAL DISINTEGRATING TAB PO PRN (10:30)
[2019-10-19] MEDS ORDERED: ACETAMINOPHEN 1000 MG/100 ML IV PRN (11:15)
[2019-10-19 11:31] VITALS: BP 140/69
[2019-10-19] MEDS ORDERED: CLORAZEPATE DIPOTASSIUM 3.75 MG TAB PO SCH (21:00)
[2019-10-19] MEDS ORDERED: NON-FORMULARY MEDICATION (Paroxetine Hcl 30 MG) PO SCH (21:00)
== END 2019-10-19 14:55 | disposition home or self-care (01) ==
LOC: OR 08:50 → PACU V 11:15 → MED/SURG 15:44
PROVIDERS: ADMIT Specialist; ATTEND Specialist
DX: M16.11 Unilateral primary osteoarthritis, right hip (principal); M17.0 Bilateral primary osteoarthritis of knee; E03.9 Hypothyroidism, unspecified; F41.9 Anxiety disorder, unspecified; Z88.2 Allergy status to sulfonamides; Z91.012 Allergy to eggs; Z11.59 Encounter for screening for other viral diseases
CPT/HCPCS: 27130; 36415 ×2; 71046; 72170; 85014; 85018; 85025; 86850; 86870; 86880; 86900; 86905; 87635; 97110; 97116 ×2; 97139; 97161; 97530; 99001; G0378 ×2; J0171; J0690 ×2; J1100 ×2; J2001; J2405; J2704; J2795; J3010; J3370; J7030; J7040; 86920

== ENCOUNTER 2021-06-26 14:34 | Emergency (ER) | payer MEDICARE ==
[~2021-06-26] VITALS: Ht 157.5 cm; Wt 56.2 kg
[~2021-06-26 14:34] MED LIST changes: -ROPIVACAINE 246.25 MG, EPINEPHRINE HCL 1:1000 1ML 0.5 MG, CLONIDINE HCL 0.08 MG in SODI... INJ ONE; +VALTREX500 MG PO
[2021-06-26 15:01] LABS: BASOPHILS % 0.5 % (0.0-1.0); EOSINOPHILS # (AUTO) 0.1 (0.0-0.4); EOSINOPHILS % 1.5 % (0.0-6.0); HEMOGLOBIN 10.2 g/dL (12.0-16.0); LYMPHOCYTES # (AUTO) 0.9 (1.0-3.2); LYMPHOCYTES % 24.1 % (18.0-39.1); MEAN CORPUSCULAR HEMOGLOBIN 28.5 pg (28-32); MEAN CORPUSCULAR HGB CONC 31.9 g/dL (31-35); MEAN CORPUSCULAR VOLUME 89.4 fL (81-99); MONOCYTES # (AUTO) 0.4 (0.2-0.8); MONOCYTES % 11.3 % (4.4-11.3); NEUTROPHILS # (AUTO) 2.4 (2.1-6.9); NEUTROPHILS % 62.3 % (38.7-80.0); PLATELET COUNT 142 x10e3/uL (140-360); RED BLOOD COUNT 3.58 x10e6/uL (3.6-5.1); RED CELL DISTRIBUTION WIDTH 14.5 % (11.7-14.4)
[2021-06-26 15:15] LABS: INR 0.95; PROTHROMBIN TIME 13.4 seconds (11.9-14.5)
[2021-06-26 15:16] LABS: PARTIAL THROMBOPLASTIN TIME 26.4 seconds (23.8-35.5)
[2021-06-26 15:17] LABS: ALBUMIN 3.5 g/dL (3.5-5.0); ANION GAP 13.7 mmol/L (8-16); CREATININE, SERUM 0.79 mg/dL (0.57-1.11); POTASSIUM 3.7 mmol/L (3.5-5.1)
[2021-06-26 15:24] LABS: CREATINE KINASE MB 1.9 ng/mL (0-5.0)
== END 2021-06-26 16:43 | disposition home or self-care (01) ==
LOC: ER 14:41
DX: R07.9 Chest pain, unspecified (principal); I10 Essential (primary) hypertension; E78.5 Hyperlipidemia, unspecified; M32.9 Systemic lupus erythematosus, unspecified; F32.A Depression, unspecified; M54.9 Dorsalgia, unspecified; G89.29 Other chronic pain
CPT/HCPCS: 36415; 71045; 80053; 82550; 82553; 83735; 83880; 84484; 85025; 85610; 85730; 93005; 99284; U0002

== ENCOUNTER → 2022-10-30 | Day surgery (SDC) | payer MEDICARE ==
[2022-10-24 11:53] LABS: BASOPHILS % 0.7 % (0.0-1.0); EOSINOPHILS # (AUTO) 0.1 (0.0-0.4); HEMATOCRIT 36.4 % (34.2-44.1); HEMOGLOBIN 11.9 g/dL (12.0-16.0); LYMPHOCYTES # (AUTO) 0.7 (1.0-3.2); LYMPHOCYTES % 16.1 % (18.0-39.1); MEAN CORPUSCULAR HGB CONC 32.7 g/dL (31-35); MEAN CORPUSCULAR VOLUME 88.6 fL (81-99); MONOCYTES # (AUTO) 0.4 (0.2-0.8); MONOCYTES % 10.9 % (4.4-11.3); NEUTROPHILS # (AUTO) 2.8 (2.1-6.9); NEUTROPHILS % 70.1 % (38.7-80.0); PLATELET COUNT 124 x10e3/uL (140-360); RED BLOOD COUNT 4.11 x10e6/uL (3.6-5.1); RED CELL DISTRIBUTION WIDTH 13.2 % (11.7-14.4)
[~2022-10-30] MED LIST changes: +ACETAMINOPHEN 1000 MG/100 ML 100 ML IV ONE; +BUPIVACAINE HCL 0.5% INJ 30 ML VIAL INJ ONE; +CEFAZOLIN SODIUM 2 GM ONE; +DEXAMETHASONE SOD PHOS INJ 4 MG/ML SDV ONE; +EPHEDRINE SULFATE INJ 50 MG/ML VIAL ONE; +FENTANYL CITRATE/PF 100MCG/2 ML INJ ONE; +LACTATED RINGER'S 1,000 ML ONE; +LIDOCAINE HCL 2% LOCAL INJ 5 ML SDV VIAL INJ ONE; +MUPIROCIN 2% OINT 22 GM TUBE ONE; +NEOSTIGMINE 1 MG/ML 10ML VIAL ONE; +ONDANSETRON HCL INJ 2MG/ML 2ML 2 MG/ML VIAL ONE; +POVIDONE IODINE 0.05% 0.05 % ML PO ONE; +PROPOFOL IV EMULSION 10 MG/ML 20 ML VIAL ONE; +SEVOFLURANE INHAL SOLN 250 ML PEN BTL ONE; +SUGAMMADEX SODIUM 200 MG/2 ML VIAL IV ONE
[2022-10-30 14:40] VITALS: BP 131/65; PULSE 76; RESP 16; O2SAT 95
== END | disposition home or self-care (01) ==
LOC: OR 05:49
PROVIDERS: ATTEND Podiatrist Foot & Ankle Surgery
DX: M20.22 Hallux rigidus, left foot (principal); M20.42 Other hammer toe(s) (acquired), left foot; M77.52 Other enthesopathy of left foot and ankle; T84.84XA Pain due to internal orthopedic prosthetic devices, implants and grafts, initial encounter; E03.9 Hypothyroidism, unspecified; D64.9 Anemia, unspecified; M32.9 Systemic lupus erythematosus, unspecified; M35.00 Sjogren syndrome, unspecified; F41.9 Anxiety disorder, unspecified; Y83.8 Other surgical procedures as the cause of abnormal reaction of the patient, or of later complication, without mention of misadventure at the time of the procedure; Z88.2 Allergy status to sulfonamides; Z88.8 Allergy status to other drugs, medicaments and biological substances; Z01.810 Encounter for preprocedural cardiovascular examination; Z01.812 Encounter for preprocedural laboratory examination; Z01.818 Encounter for other preprocedural examination; Z79.899 Other long term (current) drug therapy
CPT/HCPCS: 28285; 28288; 28291; 28308; 36415; 71046; 85025; 93005; C1713; C1776; J0131; J1100; J2001; J2405; J2704; J3010; J7121; J2710